=== PATIENT | male | born 1935 | race Caucasian/White ===

== ENCOUNTER 2016-08-19 13:47 | Emergency (ER) | payer MEDICARE ==
[~2016-08-19] VITALS: Ht 162.6 cm; Wt 63.6 kg
[~2016-08-19 13:47] MED LIST: AMLO5TAB2 PO; ATOR20TA PO; CHOL200016 PO; ETOD200C4 PO; FOLI1TAB18 PO; LOSA50TA37 PO; METH25VI11 SQ; METO25TA99 PO; OMEP20CA11 PO; PRD1T PO; SYMINH IH; TAMS0.4C98 PO
[2016-08-19 14:10] VITALS: BP 121/61; PULSE 83; RESP 18; O2SAT 100
--- NOTE | 2016-08-19 16:22 | ED.REPORT ---
HPI-Extremity Problem Lower Date of Service Aug 19, 2016 ED Provider: Hesham Su MD A 80 year old male with a history of hypertension, psoriatic arthritis, and right knee surgery is sent to the ED from [facility] due to concerns related to his recent right knee replacement. The pt had knee surgery on 08/14/2016 in [facility] and was discharged on 08/17/2016. The knee began bleeding when the pt was transferred from the hospital to [facility], but appeared to be doing well after this. He was able to walk in the hospital and to his first session of physical therapy in [facility] yesterday, where the therapist noticed abnormal redness and swelling. The therapist was concerned about a possible blood clot or infection. This has been accompanied by nausea and a low grade fever for two days with a maximum temperature of 101.3 degrees. The pt denies cough, abdominal pain, or vomiting. Nursing Notes Stated Complaint: POSS BLOOD CLOT RT KNEE/SENT FROM [facility] Chief Complaint: Extremity Trauma Nursing Notes Reviewed: Yes Allergies: Coded Allergies: azithromycin (Verified Allergy, Severe, diarrhea, 01/04/16) levofloxacin (Verified Allergy, Severe, GI UPSET,TENDONITIS, 01/04/16) meloxicam (Verified Allergy, Severe, ATTACK TENDONS IN LEFT LOWER LEG, 01/03) per h&p Dust (Verified Adverse Reaction, Severe, NASAL CONGESTION, 01/04/16) Uncoded Allergies: WALNUTS (Adverse Reaction, Severe, ORAL LESIONS, 04/10/14) Scheduled Amlodipine (Amlodipine) 5 Mg Tablet 10 MG PO DAILY Atorvastatin (Lipitor) 20 Mg Tablet 20 MG PO DAILY Budesonide/Formoterol 160-4.5 mcg Inh (Symbicort 160-4.5 mcg Inh) 1 Puff Inha 2 PUFF IH BID Cholecalciferol (Vitamin D3) (Vitamin D) 2,000 Unit Tablet 2,000 UNIT PO DAILY Etodolac (Etodolac) 200 Mg Capsule 800 MG PO DAILY Folic Acid (Folic Acid) 1 Mg Tablet 1 MG PO DAILY Losartan Potassium (Losartan Potassium) 50 Mg Tablet 50 MG PO DAILY Methotrexate Sodium/Pf (Methotrexate 25 mg/ml Vial) 25 Mg/1 Ml Vial 0.6 ML SQ WKLY Metoprolol Succinate ER (Metoprolol Succinate ER) 25 Mg Tab.er.24h 50 MG PO DAILY Omeprazole (Omeprazole) 20 Mg Capsule.dr 20 MG PO DAILY Tamsulosin (Flomax) 0.4 Mg Capsule 0.8 MG PO DAILY Miscellaneous Medications PredniSONE (PredniSONE) 1 Mg Tab 1 MG PO General Time Seen by MD: 16:22 Chief Complaint Knee injury right Hx Obtained From: Patient, Other family... Arrived By: Wheelchair Onset Occurred: 3 days ago Symptom Duration: Since onset Recent Healthcare: Recent doctor visit, Recent hospitalization Similar Sx Previous: No Past Medical History Past Medical History Psoriatic arthritis asthma irritable bowel hiatal hernia rectal bleed cancer Reports: Hypertension Past Surgical History Colonoscopy right knee replacement back shoulder x2 wrists x2 hands x2 carpal tunnel thumb Reports: Appendectomy Smoking History Former Smoker Social History Alcohol Use: Denies alcohol use Drug Use: Denies drug use Other Social History: Good social support Ambulatory Status Independent Review of Systems Review of Systems Note: right knee swelling and redness Constitutional: Reports: Fever Musculoskeletal: Reports: Extremity pain, Joint pain, Denies: Back pain Skin: Denies Rash Complete sys rev & neg: except as marked. Respiratory: Denies: Non-productive cough GI: Reports: Nausea, Denies: Abdominal pain, Vomiting Physical Exam Initial Vital Signs Vital Signs (First) Date Time Temp Pulse Resp B/P Pulse Ox O2 Delivery O2 Flow Rate FiO2 08/19/16 14:10 37.2 83 18 121/61 100 Room Air Initial VS: Reviewed Lower Extremity / Pelvis / MS: No deformity right knee has mild surrounding erythema not warm to the touch moderate 2+ edema left knee normal Ankle / Foot: Atraumatic, Full range of motion General/Constitutional: Awake, Alert Respiratory / Chest: Atraumatic, Breath sounds NL, Breath sounds = bilat, No respiratory distress Cardiovascular: Heart rate NL, Regular rhythm, Heart sounds NL Skin: Warm, Dry Neurologic: Oriented X3, Speech NL, No motor deficits, No sensory deficits Head / Eyes: Atraumatic, Normocephalic, PERRL, EOMI ENT: Atraumatic, Airway patent, Mucous membranes moist Neck: Atraumatic, Supple, Full range of motion Abdomen: Atraumatic, Soft, Non-tender Back: Atraumatic, Full range of motion Upper Extremity / MS: Atraumatic, Full range of motion Psychiatric: Affect NL, Mood NL Interpretation & Diagnostics Interpretation & Diagnostics: Venous Duplex US: IMPRESSION: No evidence of DVT. Mild fluid is noted in the popliteal fossa suggestive of Benites's cyst or partially ruptured Benites's cyst. Dictated by: Grace Cornejo M.D. on 08/19/2016 at 16:27 Approved by: Grace Cornejo M.D. on 08/19/2016 at 16:28 Lab Results Interpretation Result Diagram: 08/19/16 1630 08/19/16 1630 Test 08/19/16 15:30 08/19/16 16:30 Urine Color Yellow (YELLOW) Urine Appearance Clear (CLEAR,HAZY) Urine pH 6.5 (5.0-8.0) Urine Specific [place] 1.010 (1.003-1.035) Urine Protein Negativemg/dL (NEG,TRACE) Urine Glucose (UA) Negativemg/dL (NEGATIVE) Urine Ketones Negativemg/dL (NEGATIVE) Urine Occult Blood Trace (NEGATIVE) Urine Nitrite Negative (NEGATIVE) Urine Bilirubin Negative (NEGATIVE) Urine Urobilinogen Normalmg/dL (NORMAL) Urine Leukocyte Esterase Negative (NEGATIVE) Urine RBC 0-2/hpf (0-2) Urine WBC 0-5/hpf (0-5) Urine Epithelial Cells Occasional/hpf (NONE-MOD) Urine Crystals None seen (NONE SEEN) Urine Bacteria None/hpf (NONE-FEW) Urine Hyaline Casts None/lpf (NONE) Urine Granular Casts None seen (NONE SEEN) Urine Waxy Casts None seen (NONE SEEN) Urine Red Blood Cell Casts None seen (NONE SEEN) Urine White Blood Cell Casts None seen (NONE SEEN) Urine Mucus None seen (None Seen) Urine Trichomonas None seen (NONE SEEN) Urine Yeast None (NONE SEEN) Urinalysis Comment None Urine Culture Reflexed Not indicated White Blood Count 10.7th/mm3 (3.8-10.1) Red Blood Count 2.86mil/mm3 (4.40-5.80) Hemoglobin 9.2g/dL (13.8-17.2) Hematocrit 27.4% (41.0-50.0) Mean Corpuscular Volume 95.8fL (81-100) Mean Corpuscular Hemoglobin 32.2pg (27.0-35.0) Mean Corpuscular Hemoglobin Concent 33.6% (32.0-37.0) Red Cell Distribution Width 15.5% (12.3-15.4) Platelet Count 215bil/L (150-400) Neutrophils (%) (Auto) 79.4% (40-74) Lymphocytes (%) (Auto) 6.6% (14-46) Monocytes (%) (Auto) 12.3% (4-12) Eosinophils (%) (Auto) 1.3% (0-5) Basophils (%) (Auto) 0.2% (0-3) Sodium Level 127mEq/L (134-144) Potassium Level 5.0mEq/L (3.5-5.2) Chloride Level 92mEq/L (97-108) Carbon Dioxide Level 24mmol/L (18-29) Blood Urea Nitrogen 31mg/dL (8-27) Creatinine 1.15mg/dL (0.76-1.27) Estimat Glomerular Filtration Rate 65mL/min (>59) Glucose Level 113mg/dL (60-99) Calcium Level 7.8mg/dL (8.5-10.1) Total Bilirubin 1.1mg/dL (0.0-1.2) Aspartate Amino Transf (AST/SGOT) 36U/L (0-50) Alanine Aminotransferase (ALT/SGPT) 23U/L (0-44) Alkaline Phosphatase 48U/L (25-160) Total Protein 5.7g/dL (6.4-8.4) Albumin 3.2g/dL (3.4-5.0) Hold [place] Top Tube Received (Received) Re-Eval/Medical Decision Source of Hx: Old records Re-Evaluation/Progress #1: Time of Eval: 16:32 Patient Status: Condition improved Re-Evaluation/Progress Note: Pt rechecked, who is comfortable. He is informed of US results and plan for laboratory tests. Re-Evaluation/Progress #2: Time of Eval: 18:21 Patient Status: Condition improved Re-Evaluation/Progress Note: Pt rechecked, who is resting comfortably. He is informed of US results, diagnosis, and the plan for discharge. The pt understands and agrees with the plan. All questions are addressed at this time. Consultation : Referral / Consult Name: Gladis Alvarado MD Consulted With: Surgeon Call Returned at: 17:34 Therapy Tech: Agrees with eval, Agrees with plan Note: Spoke with Dr. Alvarado, surgeon circulation man for Dr. Napoleon Todd, regarding pt's case. Dr. Alvarado agrees with the plan for follow up. Counseled Regarding: Diagnosis, Lab results, Need for follow-up, When/why to return to ED Discharge & Departure Impression: Primary Impression: Postoperative pain of right knee Disposition: Home Discharge Condition All VS Reviewed: Yes Condition: Stable Additional Instructions: No deep vein thrombosis was discovered. No dangerous infection is suspected. Cultures were collected however and results will be available in 24-48 hours. It is safe for you to ambulate as your pain allows. Ice and elevate as much as tolerated while lying down. Do not use the ice for more than 30 minutes at a time. Call the clinic Sunday if symptoms are not improving. Sooner, if you persistently have a fever. Referrals: Jacques Shay MD (PCP) Spencer Todd MD Attestation Portions of this note were transcribed by Hira Green. I, Dr. Su personally performed the history, physical exam and medical decision-making; I reviewed and confirmed the accuracy of the information in the transcribed note. Signed by: Maxine Levin, 08/19/2016 and 18:22. copies to: Jacques Shay MD; Spencer Todd MD, Kirk H MD Aug 19, 2016 16:22 HIRA GREEN Aug 19, 2016 16:44
--- NOTE | 2016-08-19 16:30 | DRSVH ---
PROCEDURE: US VEINOUS LEG DUPLEX UNILATERAL, RIGHT INDICATIONS: pain, swelling, right leg TECHNIQUE: Real-time imaging, as well as color and pulse Doppler interrogation, were performed of the lower extr emity deep veins from the inguinal ligament to the popliteal fossa. COMPARISON: None. FINDINGS: The deep veins are normally compressible, and free of intraluminal thrombus. Color and pu lse Doppler demonstrate normal phasic intraluminal flow. There is normal augmentation response to di stal compression maneuver. Mild fluid is noted in the popliteal fossa. IMPRESSION: No evidence of DVT. Mild fluid is noted in the popliteal fossa suggestive of Benites's cyst or partially ruptured Benites's cyst. Dictated by: Grace Cornejo M.D. on 08/19/2016 at 16:27 Approved by: Grace Cornejo M.D. on 08/19/2016 at 16:28
[2016-08-19] MEDS ORDERED: HYDROcodone-APAP 5-325 mg Tablet PO ONE (16:40)
[2016-08-19 16:47] LABS: APPEARANCE,URINE CLEAR (CLEAR,HAZY); COLOR,URINE YELLOW (YELLOW); OCCULT BLOOD,URINE TRACE (NEGATIVE); PH,URINE 6.5 (5.0-8.0); UROBILINOGEN,URINE NORMAL (NORMAL)
[2016-08-19 17:08] LABS: BASOPHILS % (AUTO) 0.2 % (0-3); EOSINOPHILS % (AUTO) 1.3 % (0-5); MONOCYTES % (AUTO) 12.3 % (4-12); Mean Corpuscular Hemoglobin 32.2 pg (27.0-35.0); Mean Corpuscular Volume 95.8 fL (81-100); NEUTROPHILS % (AUTO) 79.4 % (40-74); Platelet Count 215 bil/L (150-400)
[2016-08-19 18:14] VITALS: BP 130/48; PULSE 72; RESP 16; O2SAT 96
[2016-08-19 19:09] VITALS: BP 148/54; PULSE 70; RESP 16; O2SAT 95
== END 2016-08-19 18:59 | disposition home or self-care (01) ==
LOC: SED 13:47
DX: G89.18 Other acute postprocedural pain (principal); I10 Essential (primary) hypertension; Z90.49 Acquired absence of other specified parts of digestive tract; Z87.891 Personal history of nicotine dependence; Z88.1 Allergy status to other antibiotic agents

== ENCOUNTER 2016-08-23 16:43 | Emergency (ER) | payer MEDICARE ==
[~2016-08-23 16:43] MED LIST changes: +Vancomycin Dose per Pharmacist XX ONE
[2016-08-23 16:47] VITALS: BP 153/41; PULSE 80; O2SAT 97
--- NOTE | 2016-08-23 16:52 | ED.REPORT ---
HPI-General Illness Date of Service Aug 23, 2016 ED Provider: Delmar Chaidez Patient is a 80 year old male on Coumadin who presents to the ED via EMS from [facility] complaining of fever (101.8). He was seen in the department 4 days ago for an elevated D-dimer and fever. He received a DVT workup and was sent home on Bactrim. He denies cough, sputum, abdominal pain, chest pain, or any other symptoms. Patient recently had R knee surgery. He also takes methotrexate and prednisone. Nursing Notes Stated Complaint: KNEE PAIN Chief Complaint: General Complaint Nursing Notes Reviewed: Yes Allergies: Coded Allergies: azithromycin (Verified Allergy, Severe, diarrhea, 01/04/16) levofloxacin (Verified Allergy, Severe, GI UPSET,TENDONITIS, 01/04/16) meloxicam (Verified Allergy, Severe, ATTACK TENDONS IN LEFT LOWER LEG, 01/03) per h&p Dust (Verified Adverse Reaction, Severe, NASAL CONGESTION, 01/04/16) Uncoded Allergies: WALNUTS (Adverse Reaction, Severe, ORAL LESIONS, 04/10/14) Scheduled Alendronate Sodium (Fosamax) 70 Mg Tablet 70 MG PO WEEKLY Aspirin (Aspirin) 81 Mg Tablet 81 MG PO BID Atorvastatin (Lipitor) 20 Mg Tablet 20 MG PO HS Budesonide/Formoterol 80-4.5 mcg Inh (Symbicort 80-4.5 mcg Inh) 120 Puff Inhaler 2 PUFF INHALATION BID Cholecalciferol (Vitamin D3) (Vitamin D3) 2,000 Unit Tablet 2,000 UNIT PO DAILY Fluticasone Propionate (Fluticasone Propionate Nasal) 16 Gm [place].susp 2 SPRAY NS DAILY Folic Acid (Folic Acid) 1 Mg Tablet 1 MG PO DAILY Losartan Potassium (Losartan Potassium) 50 Mg Tablet 50 MG PO DAILY Methotrexate Sodium (Methotrexate) 50 Mg/2 Ml Vial 25 MG SUBQ WEEKLY Omeprazole (Omeprazole) 20 Mg Capsule.dr 20 MG PO BIDAC Oxybutynin Chloride ER (Oxybutynin Chloride ER) 5 Mg Tab.er.24 5 MG PO HS PredniSONE (PredniSONE) 1 Mg Tab 2 MG PO DAILY Sulfamethoxazole/Trimeth 800-160 mg (Bactrim DS 800-160 mg) 1 Each Tablet 1 TABLET PO BID Tamsulosin (Flomax) 0.4 Mg Capsule 0.8 MG PO HS Scheduled PRN Acetaminophen (Acetaminophen) 325 Mg Tablet 650 MG PO Q4H PRN PRN For Pain Hydroxyzine Pamoate (HydrOXYzine Pamoate) 25 Mg Capsule 25-50 MG PO Q4 PRN PRN For Spasm Oxycodone (Roxicodone) 5 Mg Tablet 5-10 MG PO Q3H PRN PRN For Pain General Time Seen by MD: 16:52 Chief Complaint Fever Hx Obtained From: Patient Arrived By: Ambulance Recent Healthcare: Recent doctor visit, Recent testing, Previous surgery, Prior workup Similar Sx Previous: Yes Past Medical History Past Medical History Psoriatic arthritis asthma irritable bowel hiatal hernia rectal bleed cancer Reports: GERD, Hypertension Past Surgical History Colonoscopy right knee replacement back shoulder x2 wrists x2 hands x2 carpal tunnel thumb Reports: Appendectomy Smoking History Former Smoker Social History Alcohol Use: Denies alcohol use Drug Use: Denies drug use Other Social History: Good social support Ambulatory Status Independent Review of Systems Full Review of Systems Constitutional: Reports: Fever Respiratory: Denies: Non-productive cough, Prod cough, green Cardiovascular: Denies: Chest pain GI: Denies: Abdominal pain Complete sys rev & neg: except as marked. Physical Exam Vital Signs Vital Signs Date Time Temp Pulse Resp B/P Pulse Ox O2 Delivery O2 Flow Rate FiO2 08/23/16 16:47 37.2 80 153/41 97 Room Air Initial VS: Reviewed General/Constitutional: Well-developed, Well-nourished Head / Eyes: Atraumatic, Normocephalic Neck: Full range of motion Respiratory: No respiratory distress Cardiovascular: Regular rate & rhythm Abdomen / GI: Soft, Non-tender Neurologic: Alert, Oriented, Nonfocal Psychiatric: Mood/affect normal, Behavior normal, Normal thought content Right Leg / Calf: Positive: Swelling present... Uniform swelling, erythema, and warmth on R leg with tenderness. Tender with ROM. Interpretation & Diagnostics Lab Results Interpretation Result Diagram: 08/23/16 1723 08/23/16 1723 Test 08/23/16 17:23 08/23/16 18:10 White Blood Count 9.6th/mm3 (3.8-10.1) Red Blood Count 2.56mil/mm3 (4.40-5.80) Hemoglobin 8.1g/dL (13.8-17.2) Hematocrit 23.9% (41.0-50.0) Mean Corpuscular Volume 93.4fL (81-100) Mean Corpuscular Hemoglobin 31.6pg (27.0-35.0) Mean Corpuscular Hemoglobin Concent 33.9% (32.0-37.0) Red Cell Distribution Width 15.1% (12.3-15.4) Platelet Count 394bil/L (150-400) Neutrophils (%) (Auto) 78.9% (40-74) Lymphocytes (%) (Auto) 7.0% (14-46) Monocytes (%) (Auto) 12.4% (4-12) Eosinophils (%) (Auto) 1.3% (0-5) Basophils (%) (Auto) 0.1% (0-3) Erythrocyte Sedimentation Rate 101mm/hr (0-30) Reticulocyte Count,Calculated 0.8% (0.6-2.6) Prothrombin Time 11.4sec (8.1-12.5) Prothromb Time International Ratio 1.06ratio Urine Osmolality 403mOs/kH2O (250-1200) Sodium Level 124mEq/L (134-144) Potassium Level 5.1mEq/L (3.5-5.2) Chloride Level 90mEq/L (97-108) Carbon Dioxide Level 21mmol/L (18-29) Blood Urea Nitrogen 32mg/dL (8-27) Creatinine 1.40mg/dL (0.76-1.27) Estimat Glomerular Filtration Rate 52mL/min (>59) Glucose Level 111mg/dL (60-99) Osmolality 278 (275-300) Lactic Acid Level 0.7mmol/L (0.4-2.0) Calcium Level 7.8mg/dL (8.5-10.1) Magnesium Level 2.3mg/dL (1.6-2.6) Iron Level 17ug/dL (35-150) Total Iron Binding Capacity 198ug/dL (250-450) Percent Iron Saturation 9%sat (15-50) Unsaturated Iron Binding 180.9ug/dL Ferritin 978ng/mL (30-400) Total Bilirubin 1.2mg/dL (0.0-1.2) Aspartate Amino Transf (AST/SGOT) 50U/L (0-50) Alanine Aminotransferase (ALT/SGPT) 45U/L (0-44) Alkaline Phosphatase 54U/L (25-160) Troponin T < 0.010ug/L (0.0-0.011) C-Reactive Protein 12.7mg/dL (0.0-0.5) Total Protein 5.2g/dL (6.4-8.4) Albumin 2.8g/dL (3.4-5.0) Urine Color Yellow (YELLOW) Urine Appearance Clear (CLEAR,HAZY) Urine pH 6.0 (5.0-8.0) Urine Specific [place] 1.015 (1.003-1.035) Urine Protein Negativemg/dL (NEG,TRACE) Urine Glucose (UA) Negativemg/dL (NEGATIVE) Urine Ketones Negativemg/dL (NEGATIVE) Urine Occult Blood Negative (NEGATIVE) Urine Nitrite Negative (NEGATIVE) Urine Bilirubin Negative (NEGATIVE) Urine Urobilinogen Normalmg/dL (NORMAL) Urine Leukocyte Esterase Trace (NEGATIVE) Urine RBC 0-2/hpf (0-2) Urine WBC 0-5/hpf (0-5) Urine Epithelial Cells Few/hpf (NONE-MOD) Urine Crystals None seen (NONE SEEN) Urine Bacteria None/hpf (NONE-FEW) Urine Hyaline Casts None/lpf (NONE) Urine Granular Casts None seen (NONE SEEN) Urine Waxy Casts None seen (NONE SEEN) Urine Red Blood Cell Casts None seen (NONE SEEN) Urine White Blood Cell Casts None seen (NONE SEEN) Urine Mucus None seen (None Seen) Urine Trichomonas None seen (NONE SEEN) Urine Yeast None (NONE SEEN) Urinalysis Comment None Urine Culture Reflexed Indicated Lab Results Interpretation: 08/23/16 Flue negative ECG Interpretation ECG Interpretation: sinus rate 81 no abnormalities Time: 17:20 Interpreted by: ED physician X-Ray Chest Interpretation Chest Xray Interpretation: IMPRESSION: 1. No acute cardiopulmonary disease. 2. A small nodular density in the left lower lung zone. No lung mass is seen on the comparison CT dated 07/27/2016. Recommend a followup chest x-ray in 3 months. Dictated by: Gen Mccall M.D. on 08/23/2016 at 18:58 Approved by: Gen Mccall M.D. on 08/23/2016 at 19:01 View: Portable, 1 view Interpretation / Wet Read by: Interpret - Radiologist US Focused Lower Ext Venous IMPRESSION: No DVT in the right lower extremity. Dictated by: Gen Mccall M.D. on 08/23/2016 at 18:57 Approved by: Gen Mccall M.D. on 08/23/2016 at 18:58 Exam Performed by: [facility] pract Exam Type: Diagnostic Exam Interpreted by: Radiologist Re-Eval/Medical Decision Med Decision/Clinical Course Concern for postoperative leg infection. Patient will be transferred to [facility] where his surgery was performed for further evaluation by his primary orthopedic group. Spectrum antibiotics given. Time of Eval: 18:49 Re-Evaluation/Progress Note: Discussed need for admission. Patient understands and agrees with plan. All questions addressed at this time. Time of Eval: 19:40 Re-Evaluation/Progress Note: Discussed need for transfer per request of orthopedist. Patient understands and agrees with plan. All questions addressed at this time. Time of Eval: 20:06 Re-Evaluation/Progress Note: After discussion with his children, patient is not refusing transfer to [facility] and is refusing to see Dr. Todd again. Time of Eval: 20:34 Re-Evaluation/Progress Note: Dr. Palma talked to patient. Patient agrees to transfer to [facility] and see Dr. Todd. Consultation #1: Referral / Consult Name: Bryan Cuevas MD Consulted With: Hospitalist Call Returned at: 19:01 Welt Beater: Will see patient, Agrees with eval, Agrees with plan, Accepts admit Note: Discussed patient's case. Accepts admit. Consultation #2: Referral / Consult Name: Ulysses Palma MD Consulted With: Orthopedic Call Returned at: 19:21 Welt Beater: Agrees with eval, Agrees with plan Note: Discussed patient's case. Recommends calling primary orthopedist to have them manage the post-op issue. Consultation #3: Consulted With: Orthopedic Call Returned at: 19:34 Welt Beater: Agrees with eval, Agrees with plan Note: Discussed patient's case with Dr. Alvarado who is tree surgeon for patient's orthopedist (Dr. Spencer Cruz). He recommends transfer to [facility]. Consultation #4: Referral / Consult Name: Ulysses Palma MD Consulted With: Orthopedic Call Returned at: 20:12 Welt Beater: Will see patient Note: Discussed patient's refusal to transfer to [facility]. Will talk to patient. Consultation #5: Call Returned at: 21:10 Welt Beater: Accepts admit Note: Dr. Nettie Caldwell at [facility] accepts transfer. Counseled Regarding: Diagnosis, Lab results, Need for transfer Discharge & Departure Primary Impression: Infection of knee Disposition: Transfer, Acute Care Facility Receiving Hospital: [facility], Dr. Nettie Caldwell Transfer Accepted: Yes Transfer Accepted at: 21:11 Transfer Reason: Higher level of care Spoke with: Hospitalist Patient Status: Stable for transfer Patient Informed: Yes Referrals: Jacques Shay MD (PCP) Scribe Attestation Portions of this note were transcribed by Dex Oneil. I, Dr. Chaidez personally performed the history, physical exam and medical decision-making; I reviewed and confirmed the accuracy of the information in the transcribed note. Signed by: Dex Oneil 08/23/2016, [id number] copies to: Jacques Shay MD, Timothy S DO Aug 23, 2016 16:52 DEX ONEIL Aug 23, 2016 17:02
[2016-08-23] MEDS ORDERED: 0.9% Sodium Chloride 1,000 ML IV ONE (17:06)
[2016-08-23 17:37] LABS: BASOPHILS % (AUTO) 0.1 % (0-3); EOSINOPHILS % (AUTO) 1.3 % (0-5); MONOCYTES % (AUTO) 12.4 % (4-12); Mean Corpuscular Hemoglobin 31.6 pg (27.0-35.0); Mean Corpuscular Volume 93.4 fL (81-100); NEUTROPHILS % (AUTO) 78.9 % (40-74); Platelet Count 394 bil/L (150-400)
[2016-08-23 17:51] LABS: INR 1.06 ratio
[2016-08-23 18:01] LABS: TROPONIN T < 0.010 ug/L (0.0-0.011)
[2016-08-23 18:10] LABS: Magnesium 2.3 mg/dL (1.6-2.6)
[2016-08-23] MEDS ORDERED: cefTRIAXone Inj 2,000 MG in Dextrose 5% Minibag Plus 50 ML IV ONE (18:25)
[2016-08-23 18:28] LABS: APPEARANCE,URINE CLEAR (CLEAR,HAZY); COLOR,URINE YELLOW (YELLOW); OCCULT BLOOD,URINE NEGATIVE (NEGATIVE); UROBILINOGEN,URINE NORMAL (NORMAL)
[2016-08-23] MEDS ORDERED: Vancomycin Inj 1,250 MG in 0.9% Sodium Chloride 250 ML IV ONE (18:35)
--- NOTE | 2016-08-23 18:59 | DRSVH ---
PROCEDURE: US VEINOUS LEG DUPLEX UNILATERAL, RIGHT INDICATIONS: leg swelling post op TECHNIQUE: Real-time imaging, as well as color and pulse Doppler interrogation, were performed of the lower extr emity deep veins from the inguinal ligament to the popliteal fossa. COMPARISON: [facility], US, US VENOUS LEG DPLX UNI RT, 08/19/2016, 16:03. FINDINGS: The deep veins are normally compressible, and free of intraluminal thrombus. Color and pu lse Doppler demonstrate normal phasic intraluminal flow. There is normal augmentation response to di stal compression maneuver. IMPRESSION: No DVT in the right lower extremity. Dictated by: Gen Mccall M.D. on 08/23/2016 at 18:57 Approved by: Gen Mccall M.D. on 08/23/2016 at 18:58
--- NOTE | 2016-08-23 19:02 | DRSVH ---
PROCEDURE: X-RAY CHEST ONE VIEW, PORTABLE ([id number]) INDICATIONS: fever TECHNIQUE: One view of the chest was acquired. COMPARISON: [facility], CT, THORAX WITHOUT CONTRAST, 07/27/2016, 10:38. [facility], CR, XR CHEST 2VW, 12/22/2015, 21:01. [facility], CR, CHEST 1 VIEW, 04/19/2016, 9:19. [facility], CR, XR CHEST 1VW (PORTABLE), 12/26/2015, 10:28. FINDINGS: Surgical changes and devices: None. Lungs and pleura: There is a small nodular density in the left lower lung zone. There is diffuse int erstitial prominence. Lungs are otherwise clear. No pleural effusions or pneumothorax. Mediastinum: Mediastinal contours appear normal. Heart size is normal. Bones and chest wall: No suspicious bony lesions. Overlying soft tissues appear unremarkable. IMPRESSION: 1. No acute cardiopulmonary disease. 2. A small nodular density in the left lower lung zone. No lung mass is seen on the comparison CT lynda ed 07/27/2016. Recommend a followup chest x-ray in 3 months. Dictated by: Gen Mccall M.D. on 08/23/2016 at 18:58 Approved by: Gen Mccall M.D. on 08/23/2016 at 19:01
[2016-08-23] MEDS ORDERED: 0.9% Sodium Chloride 1,000 ML IV SCH (19:08)
[2016-08-23] MEDS ORDERED: Alum-Mag Hydrox-Simeth 30 mL Suspension PO PRN (19:10)
[2016-08-23] MEDS ORDERED: Piperacillin-Tazo 3.375 Gm Inj 3.375 GM in Dextrose 5% Minibag Plus 50 ML IV SCH (19:10)
[2016-08-23] MEDS ORDERED: Polyethylene Glycol (PEG) 17 Gm Powder PO PRN (19:10)
[2016-08-23] MEDS ORDERED: Ondansetron 2 mg/mL 2 mL Inj IVPUSH PRN (19:10)
[2016-08-23] MEDS ORDERED: ACET325T51 PO (19:33)
[2016-08-23] MEDS ORDERED: OXYC-474 PO (19:33)
[2016-08-23] MEDS ORDERED: HYDR-3797 PO (19:35)
[2016-08-23] MEDS ORDERED: BUDE10.2 INHALATION (19:35)
[2016-08-23 19:37] LABS: OSMOLALITY, URINE 403 mOs/kH2O (250-1200)
[2016-08-23] MEDS ORDERED: OXYB5TAB PO (19:39)
[2016-08-23] MEDS ORDERED: ASPI-973 PO (19:39)
[2016-08-23] MEDS ORDERED: CHOL200025 PO (19:39)
[2016-08-23] MEDS ORDERED: SULF1TAB35 PO (19:39)
[2016-08-23] MEDS ORDERED: METH25VI9 SUBQ (19:41)
[2016-08-23] MEDS ORDERED: ALEN70TA2 PO (19:44)
[2016-08-23] MEDS ORDERED: FLUT16SP NS (19:44)
[2016-08-23 19:53] VITALS: BP 147/45; PULSE 76; RESP 16; O2SAT 98
--- NOTE | 2016-08-23 20:01 | DRSVH ---
PROCEDURE: X-RAY RIGHT KNEE, ONE OR TWO VIEWS ([id number]) INDICATIONS: post operation pain, swelling TECHNIQUE: 2 views of the knee were acquired. COMPARISON: [facility], , KNEE 1-2 VIEWS RIGHT, 08/14/2016, 15:45. FINDINGS: Bones: There is a total knee arthroplasty with prosthesis in anatomic alignment. No fractures or dis locations. No suspicious bony lesions. Soft tissues: Moderate joint effusion. Air within the suprapatellar joint space has decreased. There is prepatellar increased soft tissue swelling. No suspicious soft tissue calcifications. IMPRESSION: 1. The knee prosthesis is in anatomic alignment. 2. Increased prepatellar soft tissue swelling. Recommend clinical correlation for soft tissue infecti on such as cellulitis. Dictated by: Gen Mccall M.D. on 08/23/2016 at 19:58 Approved by: Gen Mccall M.D. on 08/23/2016 at 20:00
[2016-08-23 20:19] LABS: Unsaturated Iron Binding 180.9 ug/dL
[2016-08-24] MEDS ORDERED: Heparin 5,000 Unit/mL Inj SUBQ SCH (00:30)
[2016-08-24 07:14] LABS: Vitamin B12 571 pg/mL (211-946)
[2016-08-24] MEDS ORDERED: Vancomycin Dose per Pharmacist XX SCH (08:30)
== END 2016-08-23 22:36 | disposition short-term general hospital (02) ==
LOC: SED 16:43 → EDBD 16:43 → MOC 19:31 → UNDOADMIN 19:31 → SED 22:36
DX: M00.9 Pyogenic arthritis, unspecified (principal); E87.1 Hypo-osmolality and hyponatremia; K21.9 Gastro-esophageal reflux disease without esophagitis; I10 Essential (primary) hypertension; Z96.651 Presence of right artificial knee joint; Z98.890 Other specified postprocedural states; Z79.01 Long term (current) use of anticoagulants; Z79.82 Long term (current) use of aspirin; Z87.891 Personal history of nicotine dependence; Z88.1 Allergy status to other antibiotic agents; Z88.8 Allergy status to other drugs, medicaments and biological substances; Z91.048 Other nonmedicinal substance allergy status
CPT/HCPCS: 36415; 71010; 73560; 80053; 81000; 82607; 82728; 82746; 83540; 83550; 83605; 83735; 83930; 83935; 84484; 85025; 85045; 85610; 85651; 86140; 87040; 87086; 93005; 93971; 96361; 96365; 96367; 99285; J0696; J3370; J7030; J7050

== ENCOUNTER 2016-09-06 19:45 | Observation (INO) | payer MEDICARE ==
[~2016-09-06] VITALS: Ht 162.6 cm; Wt 59.5 kg
[~2016-09-06 19:45] MED LIST changes: +ACET325T51 PO; +ALEN70TA2 PO; -AMLO5TAB2 PO; +ASPI-973 PO; +BUDE10.2 INHALATION; -CHOL200016 PO; +CHOL200025 PO; -ETOD200C4 PO; +FLUT16SP NS; +HYDR-3797 PO; -METH25VI11 SQ; +METH25VI9 SUBQ; -METO25TA99 PO; +OXYB5TAB PO; +OXYC-474 PO; +SULF1TAB35 PO; -SYMINH IH; -Vancomycin Dose per Pharmacist XX ONE
[2016-09-06 21:42] VITALS: BP 136/55; PULSE 66; RESP 18
[2016-09-06] MEDS ORDERED: Alum-Mag Hydrox-Simeth 30 mL Suspension PO PRN (23:00)
[2016-09-06] MEDS ORDERED: Ondansetron 2 mg/mL 2 mL Inj IVPUSH PRN (23:00)
[2016-09-06] MEDS ORDERED: Polyethylene Glycol (PEG) 17 Gm Powder PO PRN (23:00)
--- NOTE | 2016-09-06 23:13 | NUR ---
Admission Pt transferred via EMT from [facility] via stretcher. Pt alert and orientated with peripheral IV in the left AC, patent and SL. Pt able to walk independently from stretcher to bed. Admission completed. Pt unable to give medication history. Daughter stated she is able to bring medication list tomorrow.
[2016-09-07] VITALS (12 sets, daily range): BP systolic 132–167; BP diastolic 57–72; PULSE 57–77; RESP 16–20; O2SAT 92–100
[2016-09-07] MEDS ORDERED: 0.9% Sodium Chloride 1,000 ML IV SCH (00:40)
[2016-09-07] MEDS ORDERED: hydrOXYzine Pamoate 25 mg Capsule PO PRN (03:40)
[2016-09-07] MEDS ORDERED: Albuterol-Ipratropium 3 mL Inhalation Solution NEB PRN (03:50)
--- NOTE | 2016-09-07 04:37 | PCM.HPMED ---
Subjective Date of Service Sep 07, 2016 Primary Provider: Admitting Physician: Bryan Cuevas MD Primary Care Physician: Jacques Shay MD Attending Physician: Bryan Cuevas MD Admit Status: Direct Admit Chief Complaint: Syncopal episode History of Present Illness: 81-year-old male with BPH, hyperlipidemia, and recent right total knee arthroscopy presents as a transfer from [facility] the day of discharge from [facility] rehabilitation with an episode of syncope at home and documented nonsustained V. tach at [facility]. Patient had extended rehabilitation from knee surgery due to infection, she has improved greatly however he reports starting to feel more tired than usual 3 days ago. He is typically very active individual and just noticed that he did not want to walk as much. She had his morning medications administered at [facility]. He was then discharged home, he was sitting at the table, he had just gotten up to make himself a sandwich and cut up an apple. He then sat down in the chair. His daughter noticed that he became nonresponsive. She was able to hold him upright by supporting his shoulder however he did not want to lean to the right. He remained nonresponsive for a couple of minutes, EMS was called and patient was brought to [facility]. He did have some complaints of shortness of breath however no chest tightness or palpitations. He was administered a nebulizer treatment which she felt resolved his shortness of breath. Workup at [facility] included EKG normal sinus rhythm at a rate of 63 with no acute ischemia and no T-wave inversions, similar to previous EKGs. D-dimer was found to be elevated for which he received a CT chest angiogram looking for pulmonary embolism. Exam is found to be negative for pulmonary embolic disease , it also showed no acute cardiopulmonary abnormality. Peripheral interstitial lung disease is unchanged from last CT exam. It does state that correlation with respiratory function tests and high-definition CT imaging may be helpful. Atherosclerosis with considerable coronary artery calcifications identified, also remote granulomatous disease. Patient had small runs of V. tach lasting 4-6 beats without any syncopal episodes during his stay. He agreed to defibrillation if necessary. Allergies Coded Allergies: azithromycin (Verified Allergy, Severe, diarrhea, 01/04/16) levofloxacin (Verified Allergy, Severe, GI UPSET,TENDONITIS, 01/04/16) meloxicam (Verified Allergy, Severe, ATTACK TENDONS IN LEFT LOWER LEG, 01/03) per h&p Dust (Verified Adverse Reaction, Severe, NASAL CONGESTION, 01/04/16) Uncoded Allergies: WALNUTS (Adverse Reaction, Severe, ORAL LESIONS, 04/10/14) Home Medications 1. Tamsulosin 0.8 mg extended release daily 2. Oxybutynin chloride 5 mg extended release tablet daily at bedtime 3. Omeprazole 20 mg by mouth every morning 4. Alendronate sodium 70 mg by mouth every week 5. Prednisone 2 mg by mouth every morning 6. Losartan potassium 50 mg by mouth daily daily 7. Methotrexate sodium 25 mg subcutaneously every week 8. Symbicort 2 puffs twice a day 9. Cholecalciferol 120 international units by mouth daily 10. Aspirin 81 mg by mouth twice daily 11. Oxycodone acetaminophen 5-325 one to 2 tablets by mouth every 4 hours when necessary for pain PMH History of Bladder cancer COPD/asthma Surgical History Right total knee arthroplasty August 2016 Back surgery L1 to 2 discectomy and fusion of L3 to 4 Bladder cancer resection Family History Mother during 4 valve replacement surgery at the age of 82 Father had irregular heartbeat Social History Hx Alcohol Use: Yes (CAN OF BEER A DAY ) Hx Substance Use: No Smoking Status: Former Smoker (42-58-ablv-year history, quit 25 years ago) Living Arrangement: Alone Exam Vital Signs Vital Sign - Last Date Time Temp Pulse Resp B/P Pulse Ox O2 Delivery O2 Flow Rate FiO2 09/06/16 21:42 37.2 66 18 136/55 Exam General: Elderly gentleman, No acute distress, well-developed, well-nourished, appropriately interactive HEENT: Normocephalic, atraumatic. External ears without defect. Pupils equal, round, and reactive to light and accommodation. Anicteric sclerae, moist conjunctivae, and no lid lag. Oropharynx free of erythema and cobble stoning with moist mucosa. Neck: Supple with full range of motion. No jugular venous distension. No bruits. No lymphadenopathy or thyromegaly. Cardiovascular: Regular rate and rhythm with no murmurs, rubs, or gallops appreciated Pulmonary: Clear to auscultation bilaterally with no crackles, wheezes, or rhonchi. Normal respiratory effort with no use of accessory muscles. Abdomen: Bowel tones present. Soft, nontender, nondistended. No hepatosplenomegaly or masses appreciated. Extremities: Well-healed surgical scar over anterior surface of right knee. Mild darkening of skin in patches adjacent to scar. No clubbing, cyanosis, edema, or lymphadenopathy appreciated. Skin: Normal temperature, turgor, and texture; no rash, ulcers, or subcutaneous nodules appreciated. Neurological: Cranial nerves grossly intact. Normal muscle strength, tone, and bulk for age. No known gait impairment. Psychiatric: Normal mood and affect. Alert and oriented to person, place, and time. Assessment & Plan 81-year-old male with BPH, hyperlipidemia, and recent right total knee arthroscopy presents as a transfer from [facility] the day of discharge from [facility] with an episode of syncope at home and documented nonsustained V. tach 1. Syncopal episode, present on admission, resolved - Differential diagnosis includes hypoglycemia, orthostatic hypotension, arrhythmia, valvular heart disease, vasovagal - Pulmonary embolism ruled out - Orthostatic blood pressures ordered - Echocardiogram ordered - Case discussed with Dr. Richards who recommended cardiology evaluation. - Cardiology consult ordered for Evelina Segovia team to contact 2. Nonsustained ventricular tachycardia, present prior to admission, resolved - Patient is being monitored on telemetry with no additional episodes of V. tach. - Cardiology consult as above 3. Shortness of breath, present prior to arrival, resolved - DuoNeb every 6 hours when necessary 4. Urinary frequency, present on admission, chronic - Patient with history of bladder cancer status post resection - Currently on oxybutynin chloride extended release and tamsulosin - Tamsulosin currently held as it could be a contributor to orthostatic hypotension 5. COPD/reactive airway disease, present on admission, chronic, well controlled - Continue Symbicort and prednisone Acetaminophen for mild pain when necessary, home dose Percocet restarted. Bowel regimen Senna and MiraLAX PRN. Zofran when necessary for nausea and vomiting. DVT prophylaxis with sub cutaneous Lovenox Patient was admitted under inpatient status with expected length of stay greater than 2 midnights due to severity of presenting symptoms, risk of adverse event, and complexity of treatment plan. Pain Evaluation: Adequate Pain Control GI Prophylaxis: Not indicated VTE Prophylaxis: Sub-Q Enoxaparin Resuscitation Status: CPR: Attempt Resuscitation Attending Statement The patient was seen and examined together with Dr. Ahuja on 09/06 and I agree with the history, exam and plan as outlined in the note above. copies to: Jacques Shay MD, Erika R DO Sep 07, 2016 02:24 Stanley Abbasi MD Sep 07, 2016 04:58
[2016-09-07] MEDS: Fluticasone-Salmeterol 100-50 Inhaler INHALATION SCH ×2 (08:30→20:35)
[2016-09-07] MEDS: Fluticasone 0.05% 15 Spray/2 Gm 16 Gm Nasal Spray NASAL SCH (08:30)
[2016-09-07 08:31] LABS: BASOPHILS % (AUTO) 0.5 % (0-3); EOSINOPHILS % (AUTO) 4.8 % (0-5); MONOCYTES % (AUTO) 10.4 % (4-12); Mean Corpuscular Hemoglobin 30.8 pg (27.0-35.0); Mean Corpuscular Volume 95.8 fL (81-100); NEUTROPHILS % (AUTO) 68.7 % (40-74); Platelet Count 415 bil/L (150-400)
[2016-09-07] MEDS: Pantoprazole 20 mg ER24 Tablet PO SCH ×2 (09:07→20:36)
[2016-09-07] MEDS: predniSONE 1 mg Tablet PO SCH (09:07)
[2016-09-07 09:08] LABS: Magnesium 2.1 mg/dL (1.6-2.6)
[2016-09-07] MEDS ORDERED: CEPH-512 PO (11:12)
[2016-09-07] MEDS ORDERED: ASPI325T32 PO (11:12)
--- NOTE | 2016-09-07 11:32 | DRSVH ---
PROCEDURE: US BILATERAL DUPLEX DOPPLER IMAGING OF THE CAROTIDS ([id number]) INDICATIONS: syncope TECHNIQUE: Color and pulse Doppler interrogation was performed of both carotid systems, with image documentation and velocity measurements. COMPARISON: None. FINDINGS: All stenosis calculations are based on NASCET criteria. Right side: Brachial blood pressure: 152/66 mm Hg. Common Carotid Artery(Distal) PSV: 156.50 cm/s Internal Carotid Artery PSV- Proximal: 76.60 cm/s Mid-lon.50 cm/s Distal: 160.10 cm/s EDV - Proximal: 10.90 cm/s Mid-lon.60 cm/s Distal: 31.50 cm/s External Carotid Artery(Proximal) PSV: 144 cm/s ICA/CCA PSV ratio: 1.1 Owen scale imaging description: Moderate scattered plaque Percent internal carotid artery stenosis: 50-69% stenosis. Vertebral artery: Flow direction is antegrade. Left side: Brachial blood pressure: 161/71 mm Hg. Common Carotid Artery(Distal) PSV: 121.20 cm/s Internal Carotid Artery PSV - Proximal: 157.30 cm/s Mid-lon.30 cm/s Distal: 150.40 cm/s EDV - Proximal: 24.10 cm/s Mid-lon.60 cm/s Distal: 31.20 cm/s External Carotid Artery(Proximal) PSV: 111.10 cm/s ICA/CCA PSV ratio: 1.4 Owen scale imaging description: Moderate plaque. Percent internal carotid artery stenosis: 50-69% stenosis. Vertebral artery: Flow direction is antegrade. IMPRESSION: 50-69% bilateral internal carotid artery stenosis. Dictated by: Demond Elena [facility] Interpreted: Kiara Fajardo MD on 09/07/2016 at 11:31 Transcribed by: JULIETH on 09/07/2016 at 11:32 Approved by: Kiara Fajardo MD, PhD on 09/07/2016 at 17:03
--- NOTE | 2016-09-07 12:49 | NUR ---
Case Management: [facility] and Med Part D pamphlet delivered and explained to pt. and spouse. Original placed in hard chart and copy left at bedside. Georgie Bright RN
--- NOTE | 2016-09-07 13:21 | CONS ---
[address] [address] CONSULTATION REPORT PATIENT: KRIS PALENCIA : 1935 MR#: [id number] ADMIT: 09/06/2016 JOB ID: [id number] DATE OF SERVICE: 09/07/2016 REQUESTED BY: Dr. Ahuja. REASON FOR EVALUATION: Syncope. HISTORY: The history was obtained from the patient, his daughter and medical record review. He is an 81 years old male with history of hypertension, hypercholesterolemia and psoriatic arthritis. He otherwise has been healthy all his life. He lives in an apartment in [place]. He walks a lot. He denies chest discomfort, shortness of breath, orthopnea, PND, palpitations, or syncope. He had back surgery at [facility] last March and underwent right total knee replacement on August 14, 2016. The surgery was complicated by cellulitis, which was treated with antibiotics. The patient was discharged from [facility] rehab facility yesterday. He was not feeling that well yesterday. He was not quite himself. He felt tired easily. Then, around 1:30 he was sitting at a table. He got up to make himself a sandwich. He felt dizzy and sat down in a chair. His daughter noticed that he became unresponsive for 3-4 minutes. The medics arrived, and the patient was brought to [facility]. According to the medics, his blood pressure was low at that time, around 100 systolic. He did not have any associated symptoms. It was reported the patient had ventricular tachycardia 4-6 beats at [facility]. However, I reviewed of the rhythm tracing that was sent over, there was no ventricular tachycardia. There is artifact on top of sinus rhythm. The patient is currently feeling back to his normal self. After the syncopal event, within half an hour he was back to normal self and had a big lunch. PAST MEDICAL HISTORY: 1. Hypertension. 2. Hypercholesterolemia. 3. Psoriatic arthritis. PAST SURGICAL HISTORY: 1. Back surgery. 2. Right knee surgery. 3. Bladder cancer resection. HOME MEDICATIONS: 1. Oxybutynin ER 5 mg daily. 2. Atorvastatin 20 mg daily. 3. Tamsulosin 0.4 mg 2 tablets daily. 4. Omeprazole 20 mg daily. 5. Etodolac 400 mg 2 tablets daily. 6. Prednisone 2 mg daily. 7. Folic acid 1 mg daily. 8. Losartan 50 mg daily. 9. Vitamin D and calcium. 10. Alendronate 70 mg once a week. 11. Methotrexate injection once a week. 12. Symbicort inhaler. ALLERGIES: 1. LEVOFLOXACIN. 2. AZITHROMYCIN. SOCIAL HISTORY: He lives by himself in an apartment in [place]. He is very active. He quit smoking 25 years ago, with a history of 40-60 pack-year smoking. He drinks a can of beer daily. FAMILY HISTORY: His father had an irregular heartbeat. Mother during valve surgery at age 82. REVIEW OF SYSTEMS: All 10 systems are reviewed and noncontributory. PHYSICAL EXAMINATION: Reveals a pleasant elderly man appearing in no acute distress. Temperature is 36.6. Blood pressure is 132/64. Pulse 77. Body weight is 59.6 kg. Head and face have normal configuration. Anicteric sclerae. Moist mucosa. Neck supple. No jugular venous distention or carotid bruits. Chest: Normal expansion. Lungs are clear to auscultation. Heart: The first and second heart sounds are normal. No gallop or murmur. Abdomen: Soft, nontender and without hepatosplenomegaly. Back: No CVA tenderness. Extremities: No clubbing, cyanosis, or edema. Peripheral pulses are equal bilaterally. Surgical scar over the right knee. Neurologic: Grossly intact. BLOOD TESTS: Show hemoglobin 8.9, WBC 6.4, platelets 415. Sodium 137, potassium 4.2, chloride 104, bicarb 20, BUN 20, creatinine 0.83, glucose 95. AST 13, ALT 11. Troponin less than 0.01. EKG showed normal sinus rhythm. No acute ST change. IMPRESSION: 1. Syncope. 2. No evidence of ventricular tachycardia. 3. Hypertension. 4. Hypercholesterolemia. 5. Chronic obstructive pulmonary disease. PLAN: There is no evidence of ventricular tachycardia. The monitor tracing showed sinus rhythm with artifact. I suspect that he may have sinus node dysfunction as a cause of his syncope. He will continue on secured entrance monitor. I will obtain echocardiogram and Lexiscan sestamibi to evaluate his cardiac condition. TSH is pending. [facility]
--- NOTE | 2016-09-07 13:42 | PCM.PNMED ---
Subjective Date of Service Sep 07, 2016 Subjective Patient notes no complaints this morning. Denies any chest pain shortness of breath or feeling lightheaded. Admission H&P reviewed and patient did have brief syncopal episode and was seen at [facility]. And sent here for further evaluation by cardiology. Exam Vital Signs Vital Sign - Last Date Time Temp Pulse Resp B/P Pulse Ox O2 Delivery O2 Flow Rate FiO2 09/07/16 11:52 77 132/64 09/07/16 11:44 36.6 16 99 Room Air Intake and Output 09/06/16 09/06/16 09/07/16 Cumulative From/Thru 14:59 22:59 06:59 09/06/16 21:35 - 09/07/16 06:22 Intake Total 768 ml 768 ml Output Total 600 ml 600 ml Balance 168 ml 168 ml Intake Oral 300 ml 300 ml IV Total 468 ml 468 ml Output Urine Total 600 ml 600 ml # Bowel Movements 0 0 Exam Constitutional: Elderly male in no acute distress Head: Normocephalic atraumatic Mouth: No lesions Neck: Carotids 2+ over 4 without bruits Chest: Clear to auscultation Cor: Regular rate and rhythm S1-S2 without murmur Abdomen: Soft nontender bowel sounds present Extremities: No pedal edema. Neuro: Alert and oriented 3, motor strength is intact bilaterally IVs and Medications Medications Current Medications Enoxaparin Sodium 30 mg DAILY SUBQ Last administered on 09/07/16 09:07; Admin Dose 30 MG; Start 09/07/16 at 08:30 Al Hydrox/Mg Hydrox/Simethicone 30 ml Q6H PRN PO; Start 09/06/16 at 23:00 Ondansetron HCl 4 to 8 mg Q4H PRN IVPUSH; Start 09/06/16 at 23:00 Senna 17.2 mg BID PRN PO; Start 09/06/16 at 23:00 Polyethylene Glycol 17 gm DAILY PRN PO; Start 09/06/16 at 23:00 Acetaminophen 650 mg 650 mg Q4H PRN PO Last administered on 09/07/16 00:01; Admin Dose 650 MG; Start 09/06/16 at 23:00 Sodium Chloride 1,000 ml @ 100 mls/hr Q10H IV Last administered on 09/07/16 01: 35; Admin Dose 100 MLS/HR; Start 09/07/16 at 00:40; Stop 09/07/16 at 08:28; Status DC Aspirin 81 mg BID PO Last administered on 09/07/16 09:08; Admin Dose 81 MG; Start 09/07/16 at 08:30 Atorvastatin Calcium 20 mg HS PO; Start 09/07/16 at 21:00 Salmeterol Xinafoate/ Fluticasone 1 puff BID INHALATION; Start 09/07/16 at 08:30 Fluticasone Propionate 2 spray DAILY NASAL; Start 09/07/16 at 08:30 Folic Acid 1 mg DAILY PO Last administered on 09/07/16 09:07; Admin Dose 1 MG; Start 09/07/16 at 08:30 Hydroxyzine Pamoate 50 mg Q4 PRN PO; Start 09/07/16 at 03:40 Losartan Potassium 50 mg DAILY PO Last administered on 09/07/16 09:07; Admin Dose 50 MG; Start 09/07/16 at 08:30 Oxycodone HCl 10 mg Q3H PRN PO; Start 09/07/16 at 03:40 Prednisone 2 mg DAILY PO Last administered on 09/07/16 09:07; Admin Dose 2 MG; Start 09/07/16 at 08:30 Pantoprazole 20 mg BID PO Last administered on 09/07/16 09:07; Admin Dose 20 MG ; Start 09/07/16 at 08:30 Tolterodine Tartrate 2 mg HS PO; Start 09/07/16 at 21:00 Albuterol/ Ipratropium 3 ml Q6H PRN NEB; Start 09/07/16 at 03:50 Lab and Diagnostics Laboratory Tests 72 Hours Test 09/06/16 22:07 09/07/16 08:18 09/07/16 11:50 Hold Urine Received (Received) White Blood Count 6.4th/mm3 (3.8-10.1) Red Blood Count 2.89mil/mm3 (4.40-5.80) Hemoglobin 8.9g/dL (13.8-17.2) Hematocrit 27.7% (41.0-50.0) Mean Corpuscular Volume 95.8fL (81-100) Mean Corpuscular Hemoglobin 30.8pg (27.0-35.0) Mean Corpuscular Hemoglobin Concent 32.1% (32.0-37.0) Red Cell Distribution Width 15.7% (12.3-15.4) Platelet Count 415bil/L (150-400) Neutrophils (%) (Auto) 68.7% (40-74) Lymphocytes (%) (Auto) 15.3% (14-46) Monocytes (%) (Auto) 10.4% (4-12) Eosinophils (%) (Auto) 4.8% (0-5) Basophils (%) (Auto) 0.5% (0-3) Sodium Level 137mEq/L (134-144) Potassium Level 4.2mEq/L (3.5-5.2) Chloride Level 104mEq/L (97-108) Carbon Dioxide Level 20mmol/L (18-29) Blood Urea Nitrogen 20mg/dL (8-27) Creatinine 0.83mg/dL (0.76-1.27) Estimat Glomerular Filtration Rate 95mL/min (>59) Glucose Level 95mg/dL (60-99) Calcium Level 8.0mg/dL (8.5-10.1) Magnesium Level 2.1mg/dL (1.6-2.6) Total Bilirubin 0.6mg/dL (0.0-1.2) Aspartate Amino Transf (AST/SGOT) 13U/L (0-50) Alanine Aminotransferase (ALT/SGPT) 11U/L (0-44) Alkaline Phosphatase 71U/L (25-160) Troponin T < 0.010ug/L (0.0-0.011) 0.010ug/L (0.0-0.011) Total Protein 5.2g/dL (6.4-8.4) Albumin 3.4g/dL (3.4-5.0) Result Diagram: 09/07/1681709/07/16817 X-Rays, CTs and MRIs PROCEDURE: US BILATERAL DUPLEX DOPPLER IMAGING OF THE CAROTIDS ([id number]) INDICATIONS: syncope TECHNIQUE: Color and pulse Doppler interrogation was performed of both carotid systems, with image documentation and velocity measurements. COMPARISON: None. FINDINGS: All stenosis calculations are based on NASCET criteria. Right side: Brachial blood pressure: 152/66 mm Hg. Common Carotid Artery(Distal) PSV: 156.50 cm/s Internal Carotid Artery PSV- Proximal: 76.60 cm/s Mid-lon.50 cm/s Distal: 160.10 cm/s EDV - Proximal: 10.90 cm/s Mid-lon.60 cm/s Distal: 31.50 cm/s External Carotid Artery(Proximal) PSV: 144 cm/s ICA/CCA PSV ratio: 1.1 Owen scale imaging description: Moderate scattered plaque Percent internal carotid artery stenosis: 50-69% stenosis. Vertebral artery: Flow direction is antegrade. Left side: Brachial blood pressure: 161/71 mm Hg. Common Carotid Artery(Distal) PSV: 121.20 cm/s Internal Carotid Artery PSV - Proximal: 157.30 cm/s Mid-lon.30 cm/s Distal: 150.40 cm/s EDV - Proximal: 24.10 cm/s Mid-lon.60 cm/s Distal: 31.20 cm/s External Carotid Artery(Proximal) PSV: 111.10 cm/s ICA/CCA PSV ratio: 1.4 Owen scale imaging description: Moderate plaque. Percent internal carotid artery stenosis: 50-69% stenosis. Vertebral artery: Flow direction is antegrade. IMPRESSION: 50-69% bilateral internal carotid artery stenosis. Dictated by: Demond Elena RRA Interpreted: Kiara Fajardo MD on 09/07/2016 at 11:31 Transcribed by: JULIETH on 09/07/2016 at 11:32 Assessment & Plan 81-year-old male with BPH, hyperlipidemia, and recent right total knee arthroscopy presents as a transfer from [facility] the day of discharge from [facility] with an episode of syncope at home and documented nonsustained V. tach 1. Syncopal episode, present on admission, resolved - Differential diagnosis includes hypoglycemia, orthostatic hypotension, arrhythmia, valvular heart disease, vasovagal - Pulmonary embolism ruled out - Orthostatic blood pressures ordered - Echocardiogram ordered - Case discussed with Dr. Richards who recommended cardiology evaluation. - Cardiology consult ordered for Dr. Hall, -Cardiology reviewed EKG strips and felt this was artifact and not ventricular tachycardia. -Cardiology recommends echocardiogram and sestamibi stress test 2. Nonsustained ventricular tachycardia, present prior to admission, resolved - Patient is being monitored on telemetry with no additional episodes of V. tach. - Cardiology consult as above 3. Shortness of breath, present prior to arrival, resolved - DuoNeb every 6 hours when necessary 4. Urinary frequency, present on admission, chronic - Patient with history of bladder cancer status post resection - Currently on oxybutynin chloride extended release and tamsulosin - Reinitiate Flomax 5. COPD/reactive airway disease, present on admission, chronic, well controlled - Continue Symbicort 6. Psoriatic arthritis, chronic, present on admission Continue weekly methotrexate and daily by mouth prednisone. Acetaminophen for mild pain when necessary, home dose Percocet restarted. Bowel regimen Senna and MiraLAX PRN. Zofran when necessary for nausea and vomiting. DVT prophylaxis with sub cutaneous Lovenox Patient was admitted under inpatient status with expected length of stay greater than 2 midnights due to severity of presenting symptoms, risk of adverse event, and complexity of treatment plan. GI Prophylaxis: Not indicated VTE Prophylaxis: Sub-Q Enoxaparin Resuscitation Status: CPR: Attempt Resuscitation Time spent 30 minutes Arianna Bridges MD Sep 07, 2016 13:42
--- NOTE | 2016-09-07 16:55 | NUR ---
Social Work: Initial Assessment D: Per EMR review, pt is an 81 year old male admitted for sycope and Vtach. Pt is Medicare with AARP supplement; pt has no LTC insurance or VA benefits. PCP is Jacques Shay MD. NOK is is Donna Martinez, dtr, . Advanced directives completed. No readmit score entered at this time. DIRECTOR OF ACCOUNTS PAYABLE met with pt and daughter at bedside. Sw role and contact information provided. See initial assessment. Pt lives in an apartment in [facility], [facility]. Pt has 5 steps to enter his home. Pt is I with ADLS, uses a cane for ambulation. and continues to drive Pt was discharged from [facility] on day of admission. Pt has never had HH and will be doing outpatient PT. Pt has no concerns about discharge. Pt's daughter will be staying with him until pt is fully back to his baseline. A: Pt who is I at baseline. P: Anticipate pt to discharge back home once medically stable; DIRECTOR OF ACCOUNTS PAYABLE to continue to follow pt's clinical course. DAXA Holguin Addendum: 09/07/16 at 1701 by ROLANDO DELUNA Amended: Links added.
--- NOTE | 2016-09-07 17:02 | NUR ---
MIBI/Activity Patient a/o x 3, denies chest pain, nausea or sob. Patient oob with sba ed well. VSS, tele SR. Patient npo and down for MIBI this afternoon and returned to room at 1645. Orthostatic vitals done. Will cont to monitor.
--- NOTE | 2016-09-07 19:09 | DRSVH ---
PROCEDURE: ONE DAY PHARMACOLOGICAL STRESS TEST. Rest and pharmacological stress myocardial perfusion SPECT with gated imaging and ejection fraction RADIOPHARMACEUTICAL: 9.2 mCi Tc-99m tetrofosmin IV at rest and 26.5 mCi Tc-99m tetrofosmin IV at pea k effect of pharmacological stress. A [id number] was performed. INDICATIONS: Syncope, chest pain. TECHNIQUE: Radiopharmaceutical was injected at peak stress test, and also at rest. SPECT images wer e obtained. SPECT myocardial perfusion images were displayed in short axis, horizontal long axis, an d vertical long axis views. Gated images were reviewed using GI Track software. COMPARISON: None. CARDIAC STRESS: A pharmacologic stress test was performed under the supervision of attending staff, using an infusion of Lexiscan. Hemodynamic Data: There is normal blood pressure and heart rate response to pharmacologic stress. Symptoms: The patient denied anginal chest pain. Aminophylline: Not given. EKG: No diagnostic changes of ischemia; no ectopy. FINDINGS: Raw Data: There is good myocardial uptake of radiotracer. No significant motion artifacts Left Ventricle Function: Gated images demonstrate normal left ventricular wall thickening. No segme ntal wall motion abnormalities. No transient ischemic dilation. Left ventricle resting end diastoli c volume is 74 mL. Left ventricle stress ejection fraction is 62%; normal range is above 45%. Myocardial Perfusion: There is normal distribution of activity in the right and left ventricular alexi cardium. No fixed or reversible perfusion defects. IMPRESSION: 1. No ST-T changes with Lexiscan. 2. No ischemia identified. 3. Normal wall motion and ejection fraction. Dictated by: Alexis Ku M.D. on 09/07/2016 at 17:15 Transcribed by: SALLY on 09/07/2016 at 22:09 Approved by: Alexis Ku M.D. on 09/16/2016 at 14:44
[2016-09-07] MEDS: Tolterodine ER 2 mg ER24 Capsule PO SCH (20:37)
[2016-09-08] VITALS (7 sets, daily range): BP systolic 116–138; BP diastolic 54–64; PULSE 58–78; RESP 14–20; O2SAT 95–99
[2016-09-08 05:09] LABS: Free Thyroxine Index 2.3 (1.2-4.9); Thyroxine (T4) 7.2 ug/dL (4.5-12.0)
--- NOTE | 2016-09-08 06:59 | NUR ---
Ambulation/Heart Rhythm Pt ambulating independently in the room. Pt continues to be sinus rhythm at 68. No ectopy.
[2016-09-08] MEDS: Fluticasone 0.05% 15 Spray/2 Gm 16 Gm Nasal Spray NASAL SCH (08:30)
[2016-09-08] MEDS: Pantoprazole 20 mg ER24 Tablet PO SCH ×2 (09:17→20:43)
[2016-09-08] MEDS: predniSONE 1 mg Tablet PO SCH (09:17)
[2016-09-08] MEDS: Fluticasone-Salmeterol 100-50 Inhaler INHALATION SCH ×2 (09:18→20:30)
--- NOTE | 2016-09-08 14:32 | PCM.PNMED ---
Subjective Date of Service Sep 08, 2016 Subjective Patient seen and examined at bedside . No significant interval changes. No new complains. No syncope, no dizziness, no palpitation, no chest pain, no SOB Exam Vital Signs Vital Sign - Last Date Time Temp Pulse Resp B/P Pulse Ox O2 Delivery O2 Flow Rate FiO2 09/08/16 12:08 36.4 58 18 130/56 99 Room Air Intake and Output 09/07/16 09/07/16 09/08/16 Cumulative From/Thru 14:59 22:59 06:59 09/06/16 21:35 - 09/08/16 06:01 Intake Total 816 ml 300 ml 1884 ml Output Total 400 ml 700 ml 1700 ml Balance 416 ml -400 ml 184 ml Intake Oral 236 ml 300 ml 836 ml IV Total 580 ml 1048 ml Output Urine Total 400 ml 700 ml 1700 ml # Voids 3 3 # Bowel Movements 0 IVs and Medications IV Fluids Constitutional: Well-nourished male, in bed comfortably, NAD. HEENT : Normocephalic atraumatic, sclerae is anicteric. Neck : Supple, no JVD , trachea is midline Chest: Normal respiratory effort. No chest wall deformity Lung : Clear bilaterally Heart : Regular rate and rhythm S1-S2 Abdomen: Soft, ND. Entry site of beg tube is clean , dry, no apparently infected , no bleed Extremities: No pedal edema, no cyanosis, no calf tenderness Neuro: Grossly non focal , AAO x 3 Skin : No rash, no ulcer Medications Reviewed: Medications were reviewed in detail Lab and Diagnostics Result Diagram: 09/07/1681709/07/1618 X-Rays, CTs and MRIs PROCEDURE: US BILATERAL DUPLEX DOPPLER IMAGING OF THE CAROTIDS ([id number]) INDICATIONS: syncope TECHNIQUE: Color and pulse Doppler interrogation was performed of both carotid systems, with image documentation and velocity measurements. COMPARISON: None. FINDINGS: All stenosis calculations are based on NASCET criteria. Right side: Brachial blood pressure: 152/66 mm Hg. Common Carotid Artery(Distal) PSV: 156.50 cm/s Internal Carotid Artery PSV- Proximal: 76.60 cm/s Mid-lon.50 cm/s Distal: 160.10 cm/s EDV - Proximal: 10.90 cm/s Mid-lon.60 cm/s Distal: 31.50 cm/s External Carotid Artery(Proximal) PSV: 144 cm/s ICA/CCA PSV ratio: 1.1 Owen scale imaging description: Moderate scattered plaque Percent internal carotid artery stenosis: 50-69% stenosis. Vertebral artery: Flow direction is antegrade. Left side: Brachial blood pressure: 161/71 mm Hg. Common Carotid Artery(Distal) PSV: 121.20 cm/s Internal Carotid Artery PSV - Proximal: 157.30 cm/s Mid-lon.30 cm/s Distal: 150.40 cm/s EDV - Proximal: 24.10 cm/s Mid-lon.60 cm/s Distal: 31.20 cm/s External Carotid Artery(Proximal) PSV: 111.10 cm/s ICA/CCA PSV ratio: 1.4 Owen scale imaging description: Moderate plaque. Percent internal carotid artery stenosis: 50-69% stenosis. Vertebral artery: Flow direction is antegrade. IMPRESSION: 50-69% bilateral internal carotid artery stenosis. Dictated by: Demond MCNALLY Interpreted: Kiara Fajardo MD on 09/07/2016 at 11:31 Transcribed by: JULIETH on 09/07/2016 at 11:32 Assessment & Plan 81-year-old male with BPH, hyperlipidemia, and recent right total knee arthroscopy presents as a transfer from [facility] the day of discharge from [facility] with an episode of syncope at home and documented nonsustained V. tach 1. Syncopal episode, present on admission, resolved : Work up so far negative . No further episode either since admission. Telemetry monitoring shows no arrhythmias - Differential diagnosis includes hypoglycemia, orthostatic hypotension, arrhythmia, valvular heart disease, vasovagal -Cardiology reviewed EKG strips and felt this was artifact and not ventricular tachycardia. - sestamibi stress test is negative. Electrocardiogram is pending as well as cardiology evaluation 2. Non sustained ventricular tachycardia, present prior to admission, resolved - Patient is being monitored on telemetry with no additional episodes of V. tach. - Cardiology consult as above 3. Shortness of breath, present prior to arrival, resolved - DuoNeb every 6 hours when necessary 4. Urinary frequency, present on admission, chronic - Patient with history of bladder cancer status post resection - Currently on oxybutynin chloride extended release and tamsulosin - Reinitiate Flomax 5. COPD/reactive airway disease, present on admission: Quiescent - On Symbicort 6. Psoriatic arthritis, chronic, present on admission On weekly methotrexate and daily by mouth prednisone. Stable clinically and hemodynamically Plan of care as above. Discharge pending echocardiography and cardiology consult GI Prophylaxis: Not indicated VTE Prophylaxis: Sub-Q Enoxaparin Resuscitation Status: CPR: Attempt Resuscitation Time spent 25 minutes Bryan Cuevas MD Sep 08, 2016 14:32
--- NOTE | 2016-09-08 14:39 | PCM.DIMED ---
Discharge Instructions Date of Service Sep 08, 2016 Dates of Hospitalization Sep 06, 2016 at 21:20 Discharge Diagnosis Discharge Diagnosis Syncope , Non sustained Ventricular Tachycardia Psoriasis , Hypertension, COPD Diet Low fat, Low Sodium, Heart Healthy Activity No restrictions, Other (Resume Physical therapy ) Patient Instructions Follow-up plan Return to the hospital if symptoms reoccurs. No driving until cleared by primary care doctor Follow-up with PCP in: 1 week (Primary care Doctor ) Follow-up in: 2 weeks (Cardiology ') Bryan Cuevas MD Sep 08, 2016 14:39
--- NOTE | 2016-09-08 16:53 | DRSVH ---
[facility] [address] [place] [place] [address] Echocardiogram Report Name: KRIS PALENCIA FStudy Date: Height: 64 in Hospital Exam Location: [facility] Weight: 131 lb Gender: Male BSA: 1.6 m2 : 1935 Age: 81 yrs BP: 116/56 m mHg Reason For Study: Nonsustained ventricular tachycardia Ordering Physician: [facility] Performed By: Sidra Johnson Referring Physician: Dr. Jacques Shay Interpretation Summary 1. Normal left ventricular size, wall thickness and systolic function with an estimated EF of 60-65% 2. Mildly dilated right ventricle with normal systolic function. The estimated RVSP is 56 mm Hg 3. No evidence for significant valvular pathology There is no old study for comparison Procedure: A two-dimensional transthoracic echocardiogram with color flow and Doppler was performed. The study quality was technically good. There is no prior echocardiogram noted for this patient. The patient was in sinus bradycardia with heart rates between 54-64 bpm during the exam. Left Ventricle: The left ventricle is normal in size. There is normal left ventricular wall thickness. The ejection fraction is estimated to be 60-65%. No obvious wall motion abnormalities. Right Ventricle: The right ventricle is mildly dilated. The right ventricular systolic function is normal. Atria: The left atrium is severely dilated. The right atrium is mildly dilated. There is no Doppler evidence for an interatrial shunt. Mitral Valve: There is moderate mitral annular calcification. The mitral valve leaflets appear mildly thickened, but open well. There is trace mitral regurgitation. Aortic Valve: The aortic valve is trileaflet. The aortic valve opens well. The aortic valve is slightly calcified. There is trace aortic regurgitation. Tricuspid Valve: The tricuspid valve leaflets are thin and pliable. There is moderate tricuspid regurgitation. The right ventricular systolic pressure is estimated at 56 mmHg assuming a right atrial pressure of 8 mm Hg. Pulmonic Valve: The pulmonic valve leaflets are thin and pliable; valve motion is normal. There is mild to moderate pulmonic regurgitation. Great Vessels: The aortic root is normal size. The ascending aorta is normal in size. The aortic arch could not be visualized. The IVC is dilated (diameter is greater than 2.1 cm) yet it collapses greater than 50% with a sniff. This suggests a right atrial pressure of 8 mm Hg. Pericardium/ Pleura There is no pericardial effusion. MMode/2D Measurements & Calculations LVIDd: 4.7 cm RA long axis LVOT diam LVIDs: 2.5 cm LA A2 area: 24.8 cm FS: 46.4 % LA A4 area: 20.5 cm RA area Ao root diam EPSS: 0.32 cm LA length (vol): 5.3 cm IVSd: 1.0 cm LA vol: 81.6 ml : 19.1 cm Aortic Jxn LVPWd: 0.82 cm LA vol index RA vol: 55.6 ml RA asc Aorta : 34.0 mm2 Diam: 3.2 cm IVC diam: 2.2 cm LV kwong. diameter/BSA LV sys. diameter/BSA RVD1 (basal) TAPSE: 2.1 cm (cm/m^2): 2.9 (cm/m^2): 1.5 Doppler Measurements & Calculations Ao V2 max MV E max edison MV E/A: 0.78 TR max edison : 187.2 cm/sec : 82.7 cm/sec Med Peak E' Edison : 345.3 cm/sec Ao max PG MV A max edison TR max PG : 14.0 mmHg : 106.1 cm/sec E/E' med: 14.0 : 47.7 mmHg Ao mean PG MV P1/2t: 75.4 msec Lat Peak E' Edison PA V2 max : 94.7 cm/sec LVOT Max Edison E/E' lat: 9.1 PA mean PG : 110.4 cm/sec E/e' average: 11.6 Pulm A Revs Dur PA Accel Time LAQUITA(I,D): 1.7 cm : 0.18 sec sev ratio MV A dur: 0.09 sec MV dec time MV P1/2t max edison Ao V2 mean LV V1 max PG : 0.26 sec : 118.3 cm/sec MVA(P1/2t): 2.9 cm2 Ao V2 VTI: 37.7 cm LV V1 VTI LAQUITA(V,D): 1.6 cm2 : 23.1 cm PA V2 mean LAQUITA indexed to BSA Pulhpillip Jerezs Dur - MV : 70.5 cm/sec (cm^2/m^2): 1.0 A Dur: 0.02 msec Reading Physician:04:52 PM
--- NOTE | 2016-09-08 18:33 | NUR ---
Ambulation/tele Patient up independently in room and in hallway, uses cane post right total knee replacement. Instructed patient to take a few moments when laying to sitting/sitting to standing and to push call button if feeling dizzy-- verbalized understanding. No dizziness reported throughout shift. Tele SR 60s with PACs. No pain, all vital signs within normal limits, patient on RA. No reports of n/v/d/c, tolerating PO intake well.
--- NOTE | 2016-09-08 18:52 | DRSVH ---
PROCEDURE: US VENOUS LEG DUPLEX BILATERAL INDICATIONS: syncope TECHNIQUE: Real-time imaging, as well as color and pulse Doppler interrogation, were performed of the deep veins of both legs from the inguinal ligament to the popliteal fossa. COMPARISON: None. FINDINGS: The deep veins are normally compressible, and free of intraluminal thrombus. Color and pu lse Doppler demonstrate normal phasic intravascular flow. There is normal augmentation response to d istal compression maneuver. IMPRESSION: No deep vein thrombosis of the bilateral lower extremities. Dictated by: Yasmeen Gandara M.D. on 09/08/2016 at 18:50 Approved by: Yasmeen Gandara M.D. on 09/08/2016 at 18:51
--- NOTE | 2016-09-08 20:40 | PROG NOTE ---
[address] [address] CARDIOLOGY PROGRESS NOTE PATIENT: KRIS MORAN : 1935 MR#: [id number] ADMIT: 09/06/2016 JOB ID: [id number] DATE OF SERVICE: 09/08/2016 SUBJECTIVE: Mr. Moran has been doing well since admission. He did not have another syncopal episode. He walked in the [place]ap[place]. Denies having any chest discomfort, dizziness, or lightheadedness, palpitations or dyspnea on exertion. Telemetry shows sinus rhythm with heart rate between 60s and 80 beats per minute with occasional PVCs and PACs. His vitals signs are stable with normal temp, controlled blood pressure of 128/54 mmHg, Sat 97% on room air. PHYSICAL EXAMINATION: He is lying down in the bed comfortably and communicates clearly. He is not in acute distress. ENT: Sclerae anicteric. Mucous membranes moist. Neck supple. No carotid bruits, JVP is not elevated. Pulm: Good breathing efforts, normal breathing sounds bilaterally. No wheezing. No crackles. Cardiac: Regular rate and rhythm, normal S1, S2. No murmur appreciated. Abdomen: Nontender with palpation. Extremities: does not have lower extremity edema,his right knee is not painful and nontender with palpation. Skin: No rash. Neuro: Alert and oriented x3, no gross abnormalities. His labs are stable. His anemia, which is likely postsurgical, is stable. He has normal kidney function and electrolytes. His troponins were negative. ASSESSMENT and PLAN This is a very pleasant, 81-year-old gentleman, who on 08/14/2016 had right total knee replacement which was later complicated with cellulitis and then treated and cellulitis resolved. He was transferred from [facility] to [facility] on September 07, 2016, because of a syncopal episode of unknown etiology. At [facility], he had elevated D-dimer and a CT chest angio was done which showed that he did not have pulmonary embolism, it showed interstitial lung disease. Here at [facility], he had echo done on September 08, 2016, which showed that he has preserved cardiac function with LVEF 60% to 65%. He has moderate pulmonary hypertension with RVSP of 56 mmHg and normal central venous pressure. He does not have significant valvular abnormality. He had a Lexiscan stress test done on September 07, 2016 and myocardial perfusion study did not show ischemia. He has not been having any significant dysrhythmia per telemetry. At this point, would recommend doing venous ultrasound of legs to make sure that he does not have any DVT. If he does not have DVT, he can be discharged from our stand point. I explained all of this to the patient and his daughter. I recommended that the patient needs to avoid driving the car for six months As I noted, he has moderate pulmonary hypertension. The patient told me that he has a history of COPD and uses inhalers. He used to smoke up to 1-1/2 packs of cigarettes a day. He tells me that before his knee surgery, he had a pulmonary function test done at [facility], after which he was referred to quality improvement engineer whom he has not seen yet. The case was discussed with sports doctor, Dr. Lares. JOSEPH
[2016-09-08] MEDS: Tolterodine ER 2 mg ER24 Capsule PO SCH (20:43)
--- NOTE | 2016-09-08 21:40 | NUR ---
Tele/transfer/ A&O x3 , RA, SL , denies pain, denies SOB, rt knee replacement 08/14/16, still swollen denies pain. Tele SR 60 PAC, Transferred to [facility] @ [id number] to HILARY Zhong
--- NOTE | 2016-09-08 23:49 | NUR ---
transfer Received pt from [facility], Doc Bonds RN. Arrived in room with all belongings at 2135, alert and oriented x 4. Pt cooperative with all cares, uses call light appropriately. Pt saline locked, on RA, independent in room and hallway. Vital wnl, left room with call light at bedside. Will continue to monitor.
[2016-09-09 00:55] VITALS: BP 143/68; PULSE 56; RESP 20; O2SAT 96
[2016-09-09 04:37] VITALS: BP 153/61; PULSE 57; RESP 20; O2SAT 94
[2016-09-09 06:05] VITALS: PULSE 61
[2016-09-09] MEDS: Fluticasone 0.05% 15 Spray/2 Gm 16 Gm Nasal Spray NASAL SCH (08:30)
[2016-09-09 09:31] VITALS: BP 114/58; PULSE 58; RESP 16; O2SAT 98
[2016-09-09] MEDS: Fluticasone-Salmeterol 100-50 Inhaler INHALATION SCH (09:35)
[2016-09-09 09:36] VITALS: PULSE 63
[2016-09-09] MEDS: Pantoprazole 20 mg ER24 Tablet PO SCH (09:38)
[2016-09-09] MEDS: predniSONE 1 mg Tablet PO SCH (09:39)
--- NOTE | 2016-09-09 11:31 | NUR ---
Social Work-readiness for discharge: Data:EMR Reviewed. Pt is on day 3 of hospitalization for syncope per H&P. Pt is likely medically stable later today or tomorrow. Pt has been up independent in his room. SW spoke with pt and daughter Lupe and confirmed plan of home. Daughter to stay with pt and pt is already set up with outpt services. Daughter and pt had questions about obs vs inpt, SW answered questions and directed them to outpt medicare pamphlet as well. Pt's daughter to provide transport home. No discharge needs identified. All updated and agreeable to plan. Assessment:Pt who is independent at baseline. Plan:Pt to discharge home when medically stable via POV. No discharge needs identified. All updated and agreeable to plan. DAXA Cho
--- NOTE | 2016-09-09 11:34 | NUR ---
Social Work- discharge: Data:EMR Reviewed. Pt is on day 3 of hospitalization for syncope per H&P. Pt is medically stable for discharge home today. Pt has been up independent in his room. SW spoke with pt and daughter Lupe and confirmed plan of home. Daughter to stay with pt and pt is already set up with outpt services.Pt's daughter to provide transport home. No discharge needs identified. All updated and agreeable to plan. Assessment:Pt who is independent at baseline. Plan:Pt to discharge home today via POV. No discharge needs identified. All updated and agreeable to plan. DAXA Cho
--- NOTE | 2016-09-09 11:37 | NUR ---
DISCHARGE Patient discharged at 1140, daughter to drive him home. Patient denies pain, shortness of breath, and nausea. IV catheter removed intact, medications reviewed and patient states understanding. Follow up instructions, written information of syncope provided, and SW called, in room to answer insurance questions.
--- NOTE | 2016-09-09 14:43 | PCM.DC.MEX ---
Discharge Summary Date of Service Sep 09, 2016 Dates of Hospitalization Date of Hospital Admission Sep 06, 2016 at 21:20 Date of Expiration: Sep 09, 2016 Providers: Admitting Physician: Bryan Cuevas MD Primary Care Physician: Jacques Shay MD Attending Physician: Bryan Cuevas MD Diagnosis at Time of Syncope , Non sustained Ventricular Tachycardia Psoriasis , Hypertension, COPD Consultations Cardiology Procedures XRay, CTs & MRIs PROCEDURE: US BILATERAL DUPLEX DOPPLER IMAGING OF THE CAROTIDS ([id number]) INDICATIONS: syncope TECHNIQUE: Color and pulse Doppler interrogation was performed of both carotid systems, with image documentation and velocity measurements. COMPARISON: None. FINDINGS: All stenosis calculations are based on NASCET criteria. Right side: Brachial blood pressure: 152/66 mm Hg. Common Carotid Artery(Distal) PSV: 156.50 cm/s Internal Carotid Artery PSV- Proximal: 76.60 cm/s Mid-lon.50 cm/s Distal: 160.10 cm/s EDV - Proximal: 10.90 cm/s Mid-lon.60 cm/s Distal: 31.50 cm/s External Carotid Artery(Proximal) PSV: 144 cm/s ICA/CCA PSV ratio: 1.1 Owen scale imaging description: Moderate scattered plaque Percent internal carotid artery stenosis: 50-69% stenosis. Vertebral artery: Flow direction is antegrade. Left side: Brachial blood pressure: 161/71 mm Hg. Common Carotid Artery(Distal) PSV: 121.20 cm/s Internal Carotid Artery PSV - Proximal: 157.30 cm/s Mid-lon.30 cm/s Distal: 150.40 cm/s EDV - Proximal: 24.10 cm/s Mid-lon.60 cm/s Distal: 31.20 cm/s External Carotid Artery(Proximal) PSV: 111.10 cm/s ICA/CCA PSV ratio: 1.4 Owen scale imaging description: Moderate plaque. Percent internal carotid artery stenosis: 50-69% stenosis. Vertebral artery: Flow direction is antegrade. IMPRESSION: 50-69% bilateral internal carotid artery stenosis. Dictated by: Demond Elena RRA Interpreted: Kiara Fajardo MD on 09/07/2016 at 11:31 Transcribed by: JULIETH on 09/07/2016 at 11:32 Echocadiogram : No significant finding Invasive Procedures None Brief History 81-year-old male with BPH, hyperlipidemia, and recent right total knee arthroscopy presents as a transfer from [facility] the day of discharge from [facility] with an episode of syncope at home and documented nonsustained V. tach at [facility]. Patient had extended rehabilitation from knee surgery due to infection, she has improved greatly however he reports starting to feel more tired than usual 3 days ago. He is typically very active individual and just noticed that he did not want to walk as much. She had his morning medications administered at [facility]. He was then discharged home, he was sitting at the table, he had just gotten up to make himself a sandwich and cut up an apple. He then sat down in the chair. His daughter noticed that he became nonresponsive. She was able to hold him upright by supporting his shoulder however he did not want to lean to the right. He remained nonresponsive for a couple of minutes, EMS was called and patient was brought to [facility]. He did have some complaints of shortness of breath however no chest tightness or palpitations. He was administered a nebulizer treatment which she felt resolved his shortness of breath. Workup at [facility] included EKG normal sinus rhythm at a rate of 63 with no acute ischemia and no T-wave inversions, similar to previous EKGs. D-dimer was found to be elevated for which he received a CT chest angiogram looking for pulmonary embolism. Exam is found to be negative for pulmonary embolic disease , it also showed no acute cardiopulmonary abnormality. Peripheral interstitial lung disease is unchanged from last CT exam. It does state that correlation with respiratory function tests and high-definition CT imaging may be helpful. Atherosclerosis with considerable coronary artery calcifications identified, also remote granulomatous disease. Patient had small runs of V. tach lasting 4-6 beats without any syncopal episodes during his stay. He agreed to defibrillation if necessary. Hospital Course 81-year-old male with BPH, hyperlipidemia, and recent right total knee arthroscopy presents as a transfer from [facility] the day of discharge from [facility] with an episode of syncope at home and documented nonsustained V. tach 1. Syncopal episode, present on admission, resolved : Work up so far negative . No further episode either since admission. Telemetry monitoring shows no arrhythmias - Differential diagnosis includes hypoglycemia, orthostatic hypotension, arrhythmia, valvular heart disease, vasovagal -Cardiology reviewed EKG strips and felt this was artifact and not ventricular tachycardia. - sestamibi stress test is negative. Electrocardiogram is negative as well. - Poosibility of PE was reuled out. Patient had CT angiogram at [facility] and was negative. US of lower extremity here was negative Patient was cleared by cardiology for discharge . Case discussed over the phone 2. Non sustained ventricular tachycardia, present prior to admission, resolved - Patient is being monitored on telemetry with no episodes of V. tach.or other cardiac arrhythmia - Cardiology consult as above 3. Shortness of breath, present prior to arrival, resolved - DuoNeb every 6 hours when necessary. H/o COPD 4. Urinary frequency, present on admission, chronic - Patient with history of bladder cancer status post resection - Currently on oxybutynin chloride extended release and tamsulosin - Reinitiate Flomax 5. COPD/reactive airway disease, present on admission: Quiescent - On Symbicort 6. Psoriatic arthritis, chronic, present on admission On weekly methotrexate and daily by mouth prednisone. Patient is discharged home in stable condition Exam Test 09/06/16 22:07 09/07/16 08:18 09/07/16 20:11 Hold Urine Received (Received) White Blood Count 6.4th/mm3 (3.8-10.1) Red Blood Count 2.89mil/mm3 (4.40-5.80) Hemoglobin 8.9g/dL (13.8-17.2) Hematocrit 27.7% (41.0-50.0) Mean Corpuscular Volume 95.8fL (81-100) Mean Corpuscular Hemoglobin 30.8pg (27.0-35.0) Mean Corpuscular Hemoglobin Concent 32.1% (32.0-37.0) Red Cell Distribution Width 15.7% (12.3-15.4) Platelet Count 415bil/L (150-400) Neutrophils (%) (Auto) 68.7% (40-74) Lymphocytes (%) (Auto) 15.3% (14-46) Monocytes (%) (Auto) 10.4% (4-12) Eosinophils (%) (Auto) 4.8% (0-5) Basophils (%) (Auto) 0.5% (0-3) Sodium Level 137mEq/L (134-144) Potassium Level 4.2mEq/L (3.5-5.2) Chloride Level 104mEq/L (97-108) Carbon Dioxide Level 20mmol/L (18-29) Blood Urea Nitrogen 20mg/dL (8-27) Creatinine 0.83mg/dL (0.76-1.27) Estimat Glomerular Filtration Rate 95mL/min (>59) Glucose Level 95mg/dL (60-99) Calcium Level 8.0mg/dL (8.5-10.1) Magnesium Level 2.1mg/dL (1.6-2.6) Total Bilirubin 0.6mg/dL (0.0-1.2) Aspartate Amino Transf (AST/SGOT) 13U/L (0-50) Alanine Aminotransferase (ALT/SGPT) 11U/L (0-44) Alkaline Phosphatase 71U/L (25-160) Total Protein 5.2g/dL (6.4-8.4) Albumin 3.4g/dL (3.4-5.0) Thyroid Stimulating Hormone (TSH) 2.020uIU/mL (0.450-4.500) Free Thyroxine Index 2.3 (1.2-4.9) Thyroxine (T4) 7.2ug/dL (4.5-12.0) Triiodothyronine (T3) Uptake 32% (24-39) Troponin T < 0.010ug/L (0.0-0.011) Constitutional: Well-nourished male, in bed comfortably, NAD. HEENT : sclerae is anicteric. Neck : Supple, no JVD , no carotid bruit Chest: Normal respiratory effort. No chest wall deformity Lung : Clear bilaterally , no crackles, no wheezing Heart : Regular rate and rhythm S1-S2, no gallop, no murmur Abdomen: Soft, ND. Non distended Extremities: No edema, no cyanosis Neuro: Grossly non focal , AAO x 3 Skin : No rash, no ulcer Time spent 35 minutes Bryan Cuevas MD Sep 09, 2016 14:43
--- NOTE | 2016-09-09 14:51 | PCM.DC.MED ---
Discharge Summary Date of Service Sep 09, 2016 Dates of Hospitalization Date of Hospital Admission Sep 06, 2016 at 21:20 Date of Discharge: Sep 09, 2016 Providers: Admitting Physician: Bryan Cuevas MD Primary Care Physician: Jacques Shay MD Attending Physician: Bryan Cuevas MD Diagnosis at Time of Discharge Diagnosis at Time of Discharge Syncope , Non sustained Ventricular Tachycardia Psoriasis , Hypertension, COPD Consultations Cardiology Procedures XRay, CTs & MRIs PROCEDURE: US BILATERAL DUPLEX DOPPLER IMAGING OF THE CAROTIDS ([id number]) INDICATIONS: syncope TECHNIQUE: Color and pulse Doppler interrogation was performed of both carotid systems, with image documentation and velocity measurements. COMPARISON: None. FINDINGS: All stenosis calculations are based on NASCET criteria. Right side: Brachial blood pressure: 152/66 mm Hg. Common Carotid Artery(Distal) PSV: 156.50 cm/s Internal Carotid Artery PSV- Proximal: 76.60 cm/s Mid-lon.50 cm/s Distal: 160.10 cm/s EDV - Proximal: 10.90 cm/s Mid-lon.60 cm/s Distal: 31.50 cm/s External Carotid Artery(Proximal) PSV: 144 cm/s ICA/CCA PSV ratio: 1.1 Owen scale imaging description: Moderate scattered plaque Percent internal carotid artery stenosis: 50-69% stenosis. Vertebral artery: Flow direction is antegrade. Left side: Brachial blood pressure: 161/71 mm Hg. Common Carotid Artery(Distal) PSV: 121.20 cm/s Internal Carotid Artery PSV - Proximal: 157.30 cm/s Mid-lon.30 cm/s Distal: 150.40 cm/s EDV - Proximal: 24.10 cm/s Mid-lon.60 cm/s Distal: 31.20 cm/s External Carotid Artery(Proximal) PSV: 111.10 cm/s ICA/CCA PSV ratio: 1.4 Owen scale imaging description: Moderate plaque. Percent internal carotid artery stenosis: 50-69% stenosis. Vertebral artery: Flow direction is antegrade. IMPRESSION: 50-69% bilateral internal carotid artery stenosis. Dictated by: Demond MCNALLY Interpreted: Kiara Fajardo MD on 09/07/2016 at 11:31 Transcribed by: JULIETH on 09/07/2016 at 11:32 Brief History 81-year-old male with BPH, hyperlipidemia, and recent right total knee arthroscopy presents as a transfer from [facility] the day of discharge from [facility] with an episode of syncope at home and documented nonsustained V. tach at [facility]. Patient had extended rehabilitation from knee surgery due to infection, she has improved greatly however he reports starting to feel more tired than usual 3 days ago. He is typically very active individual and just noticed that he did not want to walk as much. She had his morning medications administered at [facility]. He was then discharged home, he was sitting at the table, he had just gotten up to make himself a sandwich and cut up an apple. He then sat down in the chair. His daughter noticed that he became nonresponsive. She was able to hold him upright by supporting his shoulder however he did not want to lean to the right. He remained nonresponsive for a couple of minutes, EMS was called and patient was brought to [facility]. He did have some complaints of shortness of breath however no chest tightness or palpitations. He was administered a nebulizer treatment which she felt resolved his shortness of breath. Workup at [facility] included EKG normal sinus rhythm at a rate of 63 with no acute ischemia and no T-wave inversions, similar to previous EKGs. D-dimer was found to be elevated for which he received a CT chest angiogram looking for pulmonary embolism. Exam is found to be negative for pulmonary embolic disease , it also showed no acute cardiopulmonary abnormality. Peripheral interstitial lung disease is unchanged from last CT exam. It does state that correlation with respiratory function tests and high-definition CT imaging may be helpful. Atherosclerosis with considerable coronary artery calcifications identified, also remote granulomatous disease. Patient had small runs of V. tach lasting 4-6 beats without any syncopal episodes during his stay. He agreed to defibrillation if necessary. Hospital Course 81-year-old male with BPH, hyperlipidemia, and recent right total knee arthroscopy presents as a transfer from [facility] the day of discharge from [facility] with an episode of syncope at home and documented nonsustained V. tach 1. Syncopal episode, present on admission, resolved : Work up so far negative . No further episode either since admission. Telemetry monitoring shows no arrhythmias - Differential diagnosis includes hypoglycemia, orthostatic hypotension, arrhythmia, valvular heart disease, vasovagal -Cardiology reviewed EKG strips and felt this was artifact and not ventricular tachycardia. - sestamibi stress test is negative. Echocardiogram was negative - Pulmonary Embolism was ruled out by CT angiogram done at [facility] and US of LE done here at [facility] - Patient cleared by cardiology for discharge. Case discussed over the phone 2. Non sustained ventricular tachycardia, present prior to admission, resolved - Patient was monitored on telemetry with no additional episodes of V. tach.or other cardiac arrhythmia e 3. Shortness of breath, present prior to arrival, resolved 4. Urinary frequency, present on admission, chronic - Patient with history of bladder cancer status post resection - Currently on oxybutynin chloride extended release and tamsulosin - Reinitiate Flomax 5. COPD/reactive airway disease, present on admission: Quiescent - On Symbicort 6. Psoriatic arthritis, chronic, present on admission On weekly methotrexate and daily by mouth prednisone. Patient is discharged home in stable condition Exam Vital Signs (Last) Date Time Temp Pulse Resp B/P Pulse Ox O2 Delivery O2 Flow Rate FiO2 09/09/16 09:36 63 09/09/16 09:31 36.4 16 114/58 98 Room Air Exam Constitutional: Well-nourished male, in bed comfortably, NAD. HEENT : sclerae is anicteric. Neck : Supple, no JVD , no carotid bruit Chest: Normal respiratory effort. No chest wall deformity Lung : Clear bilaterally , no crackles, no wheezing Heart : Regular rate and rhythm S1-S2, no gallop, no murmur Abdomen: Soft, ND. Non distended Extremities: No edema, no cyanosis Neuro: Grossly non focal , AAO x 3 Skin : No rash, no ulcer Test 09/06/16 22:07 09/07/16 08:18 09/07/16 20:11 Hold Urine Received (Received) White Blood Count 6.4th/mm3 (3.8-10.1) Red Blood Count 2.89mil/mm3 (4.40-5.80) Hemoglobin 8.9g/dL (13.8-17.2) Hematocrit 27.7% (41.0-50.0) Mean Corpuscular Volume 95.8fL (81-100) Mean Corpuscular Hemoglobin 30.8pg (27.0-35.0) Mean Corpuscular Hemoglobin Concent 32.1% (32.0-37.0) Red Cell Distribution Width 15.7% (12.3-15.4) Platelet Count 415bil/L (150-400) Neutrophils (%) (Auto) 68.7% (40-74) Lymphocytes (%) (Auto) 15.3% (14-46) Monocytes (%) (Auto) 10.4% (4-12) Eosinophils (%) (Auto) 4.8% (0-5) Basophils (%) (Auto) 0.5% (0-3) Sodium Level 137mEq/L (134-144) Potassium Level 4.2mEq/L (3.5-5.2) Chloride Level 104mEq/L (97-108) Carbon Dioxide Level 20mmol/L (18-29) Blood Urea Nitrogen 20mg/dL (8-27) Creatinine 0.83mg/dL (0.76-1.27) Estimat Glomerular Filtration Rate 95mL/min (>59) Glucose Level 95mg/dL (60-99) Calcium Level 8.0mg/dL (8.5-10.1) Magnesium Level 2.1mg/dL (1.6-2.6) Total Bilirubin 0.6mg/dL (0.0-1.2) Aspartate Amino Transf (AST/SGOT) 13U/L (0-50) Alanine Aminotransferase (ALT/SGPT) 11U/L (0-44) Alkaline Phosphatase 71U/L (25-160) Total Protein 5.2g/dL (6.4-8.4) Albumin 3.4g/dL (3.4-5.0) Thyroid Stimulating Hormone (TSH) 2.020uIU/mL (0.450-4.500) Free Thyroxine Index 2.3 (1.2-4.9) Thyroxine (T4) 7.2ug/dL (4.5-12.0) Triiodothyronine (T3) Uptake 32% (24-39) Troponin T < 0.010ug/L (0.0-0.011) Discharge Medications Discharge Medications Alendronate Sodium (Fosamax) 70 Mg Tablet 70 MG PO WEEKLY (Reported) Aspirin (Aspirin) 325 Mg Tablet 325 MG PO BID (Reported) Atorvastatin (Lipitor) 20 Mg Tablet 20 MG PO HS (Reported) Budesonide/Formoterol 80-4.5 mcg Inh (Symbicort 80-4.5 mcg Inh) 120 Puff Inhaler 2 PUFF INHALATION BID (Reported) Cholecalciferol (Vitamin D3) (Vitamin D3) 2,000 Unit Tablet 2,000 UNIT PO DAILY (Reported) Fluticasone Propionate (Fluticasone Propionate Nasal) 16 Gm [place].susp 2 SPRAY NS DAILY (Reported) Folic Acid (Folic Acid) 1 Mg Tablet 1 MG PO DAILY (Reported) Losartan Potassium (Losartan Potassium) 50 Mg Tablet 50 MG PO DAILY (Reported) Methotrexate Sodium (Methotrexate) 50 Mg/2 Ml Vial 25 MG SUBQ WEEKLY (Reported) Omeprazole (Omeprazole) 20 Mg Capsule.dr 20 MG PO BIDAC (Reported) Oxybutynin Chloride ER (Oxybutynin Chloride ER) 5 Mg Tab.er.24 5 MG PO HS ( Reported) PredniSONE (PredniSONE) 1 Mg Tab 2 MG PO DAILY (Reported) Tamsulosin (Flomax) 0.4 Mg Capsule 0.8 MG PO HS (Reported) As needed Acetaminophen (Acetaminophen) 325 Mg Tablet 650 MG PO Q4H PRN PRN For Pain ( Reported) Hydroxyzine Pamoate (HydrOXYzine Pamoate) 25 Mg Capsule 25-50 MG PO Q4 PRN PRN For Spasm (Reported) Oxycodone (Roxicodone) 5 Mg Tablet 5-10 MG PO Q3H PRN PRN For Pain (Reported) Followup Plan Follow-up plan Return to the hospital if symptoms reoccurs. No driving until cleared by primary care doctor Discharge Diet: Low fat, Low Sodium, Heart Healthy Discharge Activity: No restrictions, Other (Resume Physical therapy ) Follow-up with PCP in: 1 week (Primary care Doctor ) Follow-up in: 2 weeks (Cardiology ') Time spent 35 minutes Bryan Cuevas MD Sep 09, 2016 14:51
[2016-09-14] MEDS ORDERED: METHOTREXATE SODIUM 25 MG SUBQ SCH (08:30)
== END 2016-09-09 12:15 | disposition home or self-care (01) ==
LOC: INTOOBSV 21:20 → PCC 21:20 → MPC 09-08 21:40
PROVIDERS: ADMIT Internal Medicine; ATTEND Hospitalist
DX: R55 Syncope and collapse (principal); I47.2 Ventricular tachycardia; N40.1 Benign prostatic hyperplasia with lower urinary tract symptoms; R35.0 Frequency of micturition; J44.9 Chronic obstructive pulmonary disease, unspecified; J84.9 Interstitial pulmonary disease, unspecified; J98.9 Respiratory disorder, unspecified; I27.2 Other secondary pulmonary hypertension; E78.00 Pure hypercholesterolemia, unspecified; I10 Essential (primary) hypertension; L40.50 Arthropathic psoriasis, unspecified; I65.23 Occlusion and stenosis of bilateral carotid arteries; Z79.52 Long term (current) use of systemic steroids; Z79.899 Other long term (current) drug therapy; Z96.651 Presence of right artificial knee joint; Z79.82 Long term (current) use of aspirin; Z85.51 Personal history of malignant neoplasm of bladder; Z87.891 Personal history of nicotine dependence
CPT/HCPCS: 36415; 78452; 80053; 83735; 84436; 84443; 84479; 84484; 85025; 93005; 93017; 93880; 93970; 94799; A9502; C8929; G0378; J1650; J2785; J7030